=== PATIENT | male | born 1935 | race Caucasian/White ===

== ENCOUNTER 2017-08-09 20:04 | Observation (INO) ==
[2017-08-09] MEDS ORDERED: LABETALOL 20 MG/4 ML SYRINGE IV STA (23:50)
[2017-08-10] MEDS ORDERED: LABETALOL 100 MG/20 ML VIAL IV ONE (00:19)
[2017-08-10] MEDS ORDERED: MORPHINE 4 MG/1 ML VIAL IV PRN (00:32)
[2017-08-10] MEDS ORDERED: ONDANSETRON 4 MG/2 ML VIAL IV PRN (00:32)
[2017-08-10] MEDS ORDERED: LABETALOL 100 MG/20 ML VIAL IV PRN (00:38)
[2017-08-10] MEDS: NITROGLYCERIN 2% OINT 1 INCH/GM PACK TOP SCH ×4 (02:50→19:02)
[2017-08-10 07:30] LABS: Basophils # 0.1 10*3/uL (0.0-0.2); Basophils % 0.9 % (0.0-0.8); Eosinophils # 0.3 10*3/uL (0.0-0.87); Eosinophils % 3.8 % (0.00-10.9); Hematocrit 36.3 VOL% (42.0-52.0); Hemoglobin 13.1 GM/DL (14.0-18.0); Immature Granulocytes % 0.4 %; Immature Granulocytes Absolute 0.03 #; Lymphocytes # 1.2 10*3/uL (1.4-4.0); Lymphocytes % 16.4 % (21.2-54.2); Mean Corpuscular HGB Conc 36.1 GM/DL (32-36); Mean Corpuscular Hemoglobin 31 PG (27-34); Mean Corpuscular Volume 84.6 FL (87-102); Mean Platelet Volume 8.8 FL (9.6-12.0); Monocytes % 12.8 % (1.7-12.7); Neutrophils # 4.9 10*3/uL (1.4-7.4); Neutrophils % 65.7 % (38.7-73.9); Platelet Count 218 T/CUMM (130-400); Red Blood Count 4.29 MC/CUMM (3.8-5.5); Red Cell Distribution Width 13.3 % (9.3-17.3); White Blood Count 7.4 T/CUMM (4-12)
[2017-08-10 07:59] LABS: Albumin 3.3 G/DL (3.4-5.0); Bilirubin,Total 0.5 MG/DL (0.2-1.0); Calcium 8.7 MG/DL (8.5-10.1); Osmolality,Calculated 277.5 MOS/KG (273-304); Potassium 3.8 MMOL/L (3.5-5.1); Total Protein 6.9 G/DL (6.4-8.3)
[2017-08-10 08:14] LABS: Calcium 8.7 MG/DL (8.5-10.1); Osmolality,Calculated 277.5 MOS/KG (273-304); Potassium 3.8 MMOL/L (3.5-5.1)
[2017-08-10] MEDS ORDERED: amLODIPine 5 MG TABLET PO SCH (09:00)
[2017-08-10] MEDS ORDERED: REGADENOSON 0.4 MG/5 ML SYRINGE IV ONE (09:48)
[2017-08-10] MEDS ORDERED: amLODIPine 10 MG TABLET PO SCH (12:15)
[2017-08-10] MEDS: ASPIRIN EC 325 MG TABLET PO SCH (12:54)
[2017-08-10] MEDS: OXcarbazepine 300 MG TABLET PO SCH ×2 (12:54→21:25)
[2017-08-10] MEDS: GABAPENTIN 400 MG CAPSULE PO SCH ×2 (12:55→21:17)
[2017-08-10] MEDS: ENOXAPARIN 40 MG/0.4 ML SYRINGE SUBCUT SCH (12:55)
[2017-08-10] MEDS: PANTOPRAZOLE 40 MG TABLET PO SCH (12:55)
[2017-08-10] MEDS ORDERED: amLODIPine 5 MG TABLET PO ONE (14:40)
[2017-08-10] MEDS ORDERED: ACETAMINOPHEN 325 MG TABLET PO PRN (14:41)
[2017-08-11 05:08] LABS: Basophils # 0.1 10*3/uL (0.0-0.2); Basophils % 0.8 % (0.0-0.8); Eosinophils # 0.4 10*3/uL (0.0-0.87); Eosinophils % 5.9 % (0.00-10.9); Hematocrit 36.2 VOL% (42.0-52.0); Hemoglobin 12.9 GM/DL (14.0-18.0); Immature Granulocytes % 0.5 %; Immature Granulocytes Absolute 0.03 #; Lymphocytes # 1.4 10*3/uL (1.4-4.0); Lymphocytes % 22.8 % (21.2-54.2); Mean Corpuscular HGB Conc 35.6 GM/DL (32-36); Mean Corpuscular Hemoglobin 31 PG (27-34); Mean Corpuscular Volume 86.2 FL (87-102); Mean Platelet Volume 9.2 FL (9.6-12.0); Monocytes # 0.8 10*3/uL (0.11-0.8); Monocytes % 13.2 % (1.7-12.7); Neutrophils # 3.6 10*3/uL (1.4-7.4); Neutrophils % 56.8 % (38.7-73.9); Platelet Count 235 T/CUMM (130-400); Red Cell Distribution Width 13.2 % (9.3-17.3); White Blood Count 6.3 T/CUMM (4-12)
[2017-08-11 05:28] LABS: Calcium 8.3 MG/DL (8.5-10.1); Osmolality,Calculated 279.4 MOS/KG (273-304); Potassium 3.7 MMOL/L (3.5-5.1)
[2017-08-11 05:33] LABS: Risk Ratio 3.51; VLDL CHOLESTEROL 19.6 MG/DL
[2017-08-11] MEDS: NITROGLYCERIN 2% OINT 1 INCH/GM PACK TOP SCH ×2 (07:24→07:25)
[2017-08-11 07:50] VITALS: BP 157/77
[2017-08-11] MEDS: ASPIRIN EC 325 MG TABLET PO SCH (08:59)
[2017-08-11] MEDS: ENOXAPARIN 40 MG/0.4 ML SYRINGE SUBCUT SCH (08:59)
[2017-08-11] MEDS: PANTOPRAZOLE 40 MG TABLET PO SCH (08:59)
[2017-08-11] MEDS: GABAPENTIN 400 MG CAPSULE PO SCH (08:59)
[2017-08-11] MEDS: OXcarbazepine 300 MG TABLET PO SCH (08:59)
[2017-08-11] MEDS ORDERED: LOSARTAN 50 MG TABLET PO SCH (09:00)
[2017-08-11] MEDS ORDERED: ROSUVASTATIN 20 MG TABLET PO SCH (09:00)
== END 2017-08-11 10:20 | disposition home or self-care (01) ==
LOC: EDBD → EDUNIT# → N.EDINP 20:04 → N.ED 20:04 → N.TELES 08-10 01:06
PROVIDERS: ADMIT Internal Medicine; ATTEND Internal Medicine

== ENCOUNTER 2018-08-10 10:35 | Inpatient (IN) ==
[2018-08-10] MEDS ORDERED: ASPIRIN 325 MG TABLET PO STA ×2 (10:59→12:26)
[2018-08-10] MEDS ORDERED: ASPIRIN 325 MG TABLET ONE (10:59)
[2018-08-10] MEDS ORDERED: NITROGLYCERIN 2% OINT 1 INCH/GM PACK TOP STA (11:05)
[2018-08-10 11:12] LABS: Basophils # 0.1 10*3/uL (0.0-0.2); Basophils % 0.5 % (0.0-0.8); Eosinophils # 0.4 10*3/uL (0.0-0.87); Eosinophils % 3.5 % (0.00-10.9); Hematocrit 43.2 VOL% (42.0-52.0); Hemoglobin 13.9 GM/DL (14.0-18.0); Immature Granulocytes % 0.5 %; Immature Granulocytes Absolute 0.06 #; Lymphocytes # 2.3 10*3/uL (1.4-4.0); Lymphocytes % 18.4 % (21.2-54.2); Mean Corpuscular HGB Conc 32.2 GM/DL (32-36); Mean Corpuscular Volume 91.5 FL (87-102); Mean Platelet Volume 10.4 FL (9.6-12.0); Monocytes % 14.1 % (1.7-12.7); Platelet Count 240 T/CUMM (130-400); Red Blood Count 4.72 MC/CUMM (3.8-5.5); Red Cell Distribution Width 13.6 % (9.3-17.3); White Blood Count 12.7 T/CUMM (4-12)
[2018-08-10 11:30] LABS: Albumin 3.9 G/DL (3.4-5.0); Bilirubin,Total 0.7 MG/DL (0.2-1.0); Calcium 9.2 MG/DL (8.5-10.1); Osmolality,Calculated 285.3 MOS/KG (273-304); Total Protein 7.3 G/DL (6.4-8.3)
[2018-08-10] MEDS ORDERED: ENOXAPARIN 100 MG/ML SYRINGE SUBCUT STA (12:26)
[2018-08-10] MEDS ORDERED: MAGNESIUM SULF RIDER 4 GM in PREMIX 1 EACH IV PRN (12:29)
[2018-08-10] MEDS ORDERED: MORPHINE 4 MG/1 ML VIAL IV PRN (12:29)
[2018-08-10] MEDS ORDERED: PROMETHAZINE 25 MG TABLET PO PRN (12:29)
[2018-08-10] MEDS ORDERED: ONDANSETRON 4 MG/2 ML VIAL IV PRN (12:29)
[2018-08-10] MEDS ORDERED: MAGNESIUM SULF RIDER 2 GM in PREMIX 1 EACH IV PRN (12:29)
[2018-08-10] MEDS ORDERED: LACTULOSE 20 GM/30 ML UDCUP PO PRN (12:29)
[2018-08-10] MEDS ORDERED: ZALEPLON 5 MG CAPSULE PO PRN (12:29)
[2018-08-10] MEDS ORDERED: guaiFENesin/DM ER 600-30 MG TABLET PO PRN (12:29)
[2018-08-10] MEDS ORDERED: NICOTINE 21 MG/24 HR PATCH TRANSDERM PRN (12:29)
[2018-08-10] MEDS ORDERED: POTASSIUM CHLORIDE 20 MEQ TABLET PO PRN (12:29)
[2018-08-10] MEDS ORDERED: DOCUSATE SODIUM 100 MG CAPSULE PO PRN (12:29)
[2018-08-10] MEDS ORDERED: diphenhydrAMINE CAP 25 MG CAPSULE PO PRN (12:29)
[2018-08-10] MEDS ORDERED: SODIUM CHLORIDE 0.45% 1,000 ML IV SCH (12:30)
[2018-08-10] MEDS ORDERED: DIAZEPAM 5 MG TABLET PO ONE (12:32)
[2018-08-10] MEDS ORDERED: POTASSIUM CHLORIDE RIDER 10 MEQ in PREMIX 1 EACH IV PRN (12:32)
[2018-08-10] MEDS ORDERED: diphenhydrAMINE CAP 25 MG CAPSULE PO ONE (12:32)
[2018-08-10 13:03] LABS: Risk Ratio 3.59; VLDL CHOLESTEROL 28.8 MG/DL
[2018-08-10 13:30] LABS: Apearance,Urine CLEAR (Clear); Bilirubin,Urine Negative (Negative); Blood, Urine Negative (Negative); Glucose,Urine (UA) Negative (Negative); Hyaline Casts,Urine 1 /LPF (0-3); Ketones,Urine Negative (Negative); Mucus,Urine Occasional /LPF (Occasional); Nitrite,Urine Negative (Negative); Protein,Urine Negative; Squamous Epithelial Cell,Urine Occasional /HPF (0-10); Urine Color Yellow (Yellow); Urine Specific Gravity 1.011 (1.001-1.035); Urine Urobilinogen < 2.0 EU/DL (0.2-1.0)
[2018-08-10] MEDS ORDERED: LIDOCAINE 1% 20 ML VIAL ONE (14:16)
[2018-08-10] MEDS ORDERED: fentaNYL 100 MCG/2 ML VIAL ONE (14:17)
[2018-08-10] MEDS ORDERED: MIDAZOLAM 2 MG/2 ML VIAL ONE (14:17)
[2018-08-10] MEDS ORDERED: SODIUM CHLORIDE 0.9% 1,000 ML IV SCH (17:00)
[2018-08-10] MEDS: GABAPENTIN 400 MG CAPSULE PO SCH (20:55)
[2018-08-11 05:59] LABS: Basophils % 0.4 % (0.0-0.8); Eosinophils # 0.4 10*3/uL (0.0-0.87); Eosinophils % 3.6 % (0.00-10.9); Hematocrit 37.3 VOL% (42.0-52.0); Hemoglobin 12.3 GM/DL (14.0-18.0); Immature Granulocytes Absolute 0.11 #; Lymphocytes # 1.6 10*3/uL (1.4-4.0); Lymphocytes % 14.6 % (21.2-54.2); Mean Corpuscular Volume 90.5 FL (87-102); Mean Platelet Volume 11.6 FL (9.6-12.0); Monocytes % 14.9 % (1.7-12.7); Neutrophils % 65.5 % (38.7-73.9); Platelet Count 185 T/CUMM (130-400); Red Blood Count 4.12 MC/CUMM (3.8-5.5); Red Cell Distribution Width 13.4 % (9.3-17.3); White Blood Count 11.1 T/CUMM (4-12)
[2018-08-11 06:28] LABS: CKMB % 9.9 %; Calcium 8.6 MG/DL (8.5-10.1); Osmolality,Calculated 288.1 MOS/KG (273-304)
[2018-08-11 06:30] LABS: Troponin I 15.4 NG/ML (0.00-0.045)
[2018-08-11] MEDS ORDERED: amLODIPine 10 MG TABLET PO SCH (09:00)
[2018-08-11] MEDS: ENOXAPARIN 30 MG/0.3 ML SYRINGE SUBCUT SCH (09:21)
[2018-08-11] MEDS: GABAPENTIN 400 MG CAPSULE PO SCH ×3 (09:21→21:28)
[2018-08-11] MEDS: FAMOTIDINE 20 MG TABLET PO SCH (09:21)
[2018-08-11] MEDS: ASPIRIN EC 81 MG TABLET PO SCH (09:21)
[2018-08-11] MEDS: PANTOPRAZOLE 40 MG TABLET PO SCH (09:21)
[2018-08-11] MEDS: ROSUVASTATIN 20 MG TABLET PO SCH (09:21)
[2018-08-12 05:23] LABS: Basophils # 0.1 10*3/uL (0.0-0.2); Basophils % 0.6 % (0.0-0.8); Eosinophils # 0.4 10*3/uL (0.0-0.87); Eosinophils % 3.7 % (0.00-10.9); Hematocrit 38.3 VOL% (42.0-52.0); Hemoglobin 12.3 GM/DL (14.0-18.0); Immature Granulocytes % 0.4 %; Immature Granulocytes Absolute 0.05 #; Lymphocytes # 1.7 10*3/uL (1.4-4.0); Lymphocytes % 15.3 % (21.2-54.2); Mean Corpuscular HGB Conc 32.1 GM/DL (32-36); Mean Corpuscular Volume 92.1 FL (87-102); Mean Platelet Volume 10.5 FL (9.6-12.0); Monocytes % 16.4 % (1.7-12.7); Neutrophils % 63.6 % (38.7-73.9); Platelet Count 189 T/CUMM (130-400); Red Blood Count 4.16 MC/CUMM (3.8-5.5); Red Cell Distribution Width 13.4 % (9.3-17.3); White Blood Count 11.2 T/CUMM (4-12)
[2018-08-12 05:44] LABS: Calcium 8.6 MG/DL (8.5-10.1); Osmolality,Calculated 284.4 MOS/KG (273-304)
[2018-08-12 05:55] LABS: Band Neutrophils 2 % (0-10); Eosinophils 3 % (0-10); Lymphocytes 20 % (20-55); Segmented Neutrophils 63 % (50-85)
[2018-08-12 05:56] LABS: Platelet Estimate Adequate; Total Cells Counted 100
[2018-08-12] MEDS: GABAPENTIN 400 MG CAPSULE PO SCH ×3 (09:22→21:38)
[2018-08-12] MEDS: ROSUVASTATIN 20 MG TABLET PO SCH (09:22)
[2018-08-12] MEDS: PANTOPRAZOLE 40 MG TABLET PO SCH (09:23)
[2018-08-12] MEDS: CHLORHEXIDINE 0.12% ORAL RINSE 60 ML BOTTLE SWISH/SPIT SCH ×2 (09:23→21:39)
[2018-08-12] MEDS: FAMOTIDINE 20 MG TABLET PO SCH (09:23)
[2018-08-12] MEDS: CHLORHEXIDINE 4% SOLN 118 ML BOTTLE TOP SCH ×2 (09:24→16:11)
[2018-08-12] MEDS: ASPIRIN EC 81 MG TABLET PO SCH (09:24)
[2018-08-12] MEDS: SODIUM CHLORIDE 0.9% 1,000 ML IV SCH (09:40)
[2018-08-12] MEDS: ENOXAPARIN 30 MG/0.3 ML SYRINGE SUBCUT SCH ×2 (09:41→13:54)
[2018-08-13] MEDS ORDERED: TISSUE ADHESIVE 1 EACH APPLICATOR TOP ONE (04:41)
[2018-08-13] MEDS ORDERED: PAPAVERINE 60 MG/2 ML VIAL ONE (04:41)
[2018-08-13] MEDS ORDERED: VANCOMYCIN 1,000 MG VIAL ONE (04:42)
[2018-08-13 05:32] LABS: Basophils # 0.1 10*3/uL (0.0-0.2); Basophils % 0.7 % (0.0-0.8); Eosinophils # 0.6 10*3/uL (0.0-0.87); Eosinophils % 5.4 % (0.00-10.9); Hematocrit 38.5 VOL% (42.0-52.0); Hemoglobin 12.7 GM/DL (14.0-18.0); Immature Granulocytes % 0.4 %; Immature Granulocytes Absolute 0.04 #; Lymphocytes # 1.7 10*3/uL (1.4-4.0); Mean Corpuscular Volume 91.4 FL (87-102); Mean Platelet Volume 12.1 FL (9.6-12.0); Monocytes % 18.4 % (1.7-12.7); Neutrophils % 59.1 % (38.7-73.9); Platelet Count 166 T/CUMM (130-400); Red Blood Count 4.21 MC/CUMM (3.8-5.5); Red Cell Distribution Width 13.2 % (9.3-17.3); White Blood Count 10.5 T/CUMM (4-12)
[2018-08-13 05:51] LABS: Calcium 9.1 MG/DL (8.5-10.1); Osmolality,Calculated 281.5 MOS/KG (273-304)
[2018-08-13 05:58] LABS: Band Neutrophils 2 % (0-10); Eosinophils 8 % (0-10); Hypochromasia Slight; Lymphocytes 11 % (20-55); Platelet Estimate Adequate; Segmented Neutrophils 63 % (50-85); Total Cells Counted 100
[2018-08-13] MEDS: CHLORHEXIDINE 4% SOLN 118 ML BOTTLE TOP SCH (06:00)
[2018-08-13] MEDS ORDERED: CEFUROXIME INJ 1,500 MG in SYRINGE 1 EACH IV ONE (06:51)
[2018-08-13] MEDS ORDERED: DIAZEPAM 5 MG TABLET PO ONE (08:00)
[2018-08-13] MEDS ORDERED: MIDAZOLAM 10 MG/2 ML VIAL ONE (08:11)
[2018-08-13] MEDS ORDERED: VECURONIUM 10 MG VIAL IV ONE (08:14)
[2018-08-13] MEDS ORDERED: ETOMIDATE 40 MG/20 ML VIAL IV ONE (08:14)
[2018-08-13] MEDS ORDERED: HEPARIN/NACL 0.9% 2 UNITS/ML 500 ML IV ONE (08:18)
[2018-08-13] MEDS ORDERED: NITROGLYCERIN DRIP 50 MG/250 ML BOTTLE IV ONE (08:18)
[2018-08-13] MEDS ORDERED: SODIUM CHLORIDE 0.9% 1,000 ML IV ONE ×2 (08:18→17:40)
[2018-08-13] MEDS ORDERED: PHENYLEPHRINE DRIP 20 MG/250 ML PREMIX IV ONE (08:18)
[2018-08-13] MEDS ORDERED: LACTATED RINGERS 1,000 ML IV ONE ×2 (08:18→17:40)
[2018-08-13] MEDS ORDERED: CALCIUM CHLORIDE 1,000 MG/10 ML VIAL IV ONE (08:18)
[2018-08-13] MEDS ORDERED: NITROPRUSSIDE 50 MG/2 ML VIAL ONE (09:14)
[2018-08-13] MEDS ORDERED: ALBUMIN 5% 12.5 GM/250 ML VIAL IV ONE (09:15)
[2018-08-13] MEDS ORDERED: PHENYLEPHRINE DRIP 40 MG/250 ML PREMIX IV ONE (09:15)
[2018-08-13] MEDS ORDERED: SODIUM BICARBONATE 50 MEQ/50 ML VIAL IV ONE ×2 (09:15→16:32)
[2018-08-13] MEDS ORDERED: POTASSIUM CHLORIDE RIDER 100 ML IV ONE ×2 (09:15→18:38)
[2018-08-13] MEDS ORDERED: CALCIUM CHLORIDE 1,000 MG/10 ML SYRINGE IV ONE (09:15)
[2018-08-13] MEDS: PANTOPRAZOLE 40 MG TABLET PO SCH (10:33)
[2018-08-13] MEDS ORDERED: EPINEPHrine 1 MG/ML VIAL ONE (11:40)
[2018-08-13] MEDS ORDERED: VANCOMYCIN 500 MG VIAL ONE (12:45)
[2018-08-13 13:18] LABS: ABG Base Excess -1.4 MMOL/L (-2.5-2.5); ABG HCO3 23.2 MMOL/L (20-26); ABG Oxygen Saturation 99.8 % (95-100); ABG PCO2 38.3 MM HG (35-48); ABG TCO2 20.5 MMOL/L (23-27); Glucose Heart Surgery 116 MG/DL (74-106); Hematocrit Heart Surgery 37.7 PERCENT (42-52); Hemoglobin Heart Surgery 12.3 G/DL (14.0-18.0); PCO2 Patient Temp Arterial 38.3 MMHG; Patient Temperature 37 CELCIUS; Sodium Heart/CVR 138 MMOL/L (135-145)
[2018-08-13] MEDS: GABAPENTIN 400 MG CAPSULE PO SCH (14:25)
[2018-08-13] MEDS: ROSUVASTATIN 20 MG TABLET PO SCH (14:25)
[2018-08-13] MEDS: CHLORHEXIDINE 0.12% ORAL RINSE 60 ML BOTTLE SWISH/SPIT SCH ×2 (14:25→21:49)
[2018-08-13] MEDS: SODIUM CHLORIDE 0.9% 1,000 ML IV SCH (14:25)
[2018-08-13] MEDS: FAMOTIDINE 20 MG TABLET PO SCH (14:25)
[2018-08-13] MEDS: ENOXAPARIN 30 MG/0.3 ML SYRINGE SUBCUT SCH (14:25)
[2018-08-13] MEDS: ASPIRIN EC 81 MG TABLET PO SCH (14:25)
[2018-08-13 15:01] LABS: Hematocrit Heart Surgery 24.6 PERCENT (42-52); Hemoglobin Heart Surgery 7.9 G/DL (14.0-18.0); PCO2 Patient Temp Venous 33.5 MM HG; PH Patient Temp Venous 7.442; PO2 Patient Temp Venous 35.9 MM HG; VBG Base Excess -0.9 MEQ/L (0-4); VBG HCO3 23.3 MEQ/L (24-28); VBG Oxygen Saturation 72.3 %; VBG PCO2 33.5 MMHG (41-51); VBG PH 7.442; VBG PO2 35.9 MMHG (17-40)
[2018-08-13 15:32] LABS: Hematocrit Heart Surgery 25.5 PERCENT (42-52); Hemoglobin Heart Surgery 8.2 G/DL (14.0-18.0); PCO2 Patient Temp Venous 31.2 MM HG; PH Patient Temp Venous 7.435; PO2 Patient Temp Venous 49.2 MM HG; Potassium Heart/CVR 4.3 MMOL/L (3.5-5.1); VBG Base Excess -2.7 MEQ/L (0-4); VBG HCO3 22.1 MEQ/L (24-28); VBG PCO2 34.3 MMHG (41-51); VBG PH 7.405; VBG PO2 56.3 MMHG (17-40)
[2018-08-13 15:41] LABS: Apearance,Urine CLEAR (Clear); Bacteria,Urine Occasional /HPF (Few); Bilirubin,Urine Negative (Negative); Blood, Urine Negative (Negative); Glucose,Urine (UA) Negative (Negative); Ketones,Urine Negative (Negative); Mucus,Urine Occasional /LPF (Occasional); Nitrite,Urine Negative (Negative); Protein,Urine Negative; RBC,Urine 3 /HPF (0-4); Urine Color Yellow (Yellow); Urine Urobilinogen < 2.0 EU/DL (0.2-1.0); WBC,Urine <1 /HPF (0-6)
[2018-08-13 15:58] LABS: Hematocrit Heart Surgery 25.8 PERCENT (42-52); Hemoglobin Heart Surgery 8.3 G/DL (14.0-18.0); PCO2 Patient Temp Venous 33.1 MM HG; PH Patient Temp Venous 7.427; PO2 Patient Temp Venous 46.2 MM HG; Potassium Heart/CVR 4.6 MMOL/L (3.5-5.1); VBG HCO3 22.5 MEQ/L (24-28); VBG Oxygen Saturation 83.8 %; VBG PCO2 33.1 MMHG (41-51); VBG PH 7.427; VBG PO2 46.2 MMHG (17-40)
[2018-08-13 16:21] LABS: HIV Antigen/Antibody Result Nonreactive (Nonreactive); Hepatitis B Surface Ag Quant 0.61 Index; Hepatitis B Surface Ag Result Negative (Negative); Hepatitis C Virus Ab Quant 0.08 Index; Hepatitis C Virus Ab Result Negative (Negative)
[2018-08-13 16:30] LABS: ABG Base Excess -1.2 MMOL/L (-2.5-2.5); ABG HCO3 23.5 MMOL/L (20-26); ABG PCO2 36.8 MM HG (35-48); ABG PH 7.408 (7.35-7.45); ABG TCO2 21.6 MMOL/L (23-27); Glucose Heart Surgery 244 MG/DL (74-106); Ionized Calcium Arterial 1.17 MMOL/L (1.21-1.46); PCO2 Patient Temp Arterial 36.8 MMHG; PH Patient Temp Arterial 7.408; Patient Temperature 37 CELCIUS; Potassium Heart/CVR 4.1 MMOL/L (3.5-5.1); Sodium Heart/CVR 135 MMOL/L (135-145)
[2018-08-13] MEDS ORDERED: MANNITOL 100 GM/500 ML BAG IV ONE (16:32)
[2018-08-13] MEDS ORDERED: DEXTROSE 5% KCL 20 MEQ 20 MEQ/1,000 ML BAG IV ONE (16:32)
[2018-08-13] MEDS ORDERED: PROTAMINE SULFATE 250 MG/25 ML VIAL IV ONE (16:33)
[2018-08-13] MEDS ORDERED: MAGNESIUM SULFATE 5 GM/10 ML VIAL IV ONE (16:33)
[2018-08-13] MEDS ORDERED: ALBUMIN 25% 25 GM/100 ML VIAL IV ONE (16:33)
[2018-08-13] MEDS ORDERED: PROTAMINE SULFATE 50 MG/5 ML VIAL IV ONE (16:33)
[2018-08-13] MEDS ORDERED: FUROSEMIDE 20 MG/2 ML VIAL ONE (16:33)
[2018-08-13] MEDS ORDERED: methylPREDNISolone SOD SUC 1,000 MG/8 ML VIAL ONE (16:33)
[2018-08-13] MEDS ORDERED: HEPARIN 10,000 UNIT/10 ML VIAL ONE ×2 (16:33→17:45)
[2018-08-13] MEDS ORDERED: THROMBIN TOPICAL (RECOMBINANT) 5,000 UNIT VIAL TOP ONE (17:36)
[2018-08-13] MEDS ORDERED: SEVOFLURANE 1 UNIT/15 MINUTE INH ONE (17:39)
[2018-08-13] MEDS ORDERED: AMINOCAPROIC ACID 5,000 MG/20 ML VIAL ONE (17:39)
[2018-08-13] MEDS ORDERED: PROPOFOL 200 MG/20 ML VIAL IV ONE (17:40)
[2018-08-13] MEDS ORDERED: ALBUMIN 5% 12.5 GM in PREMIX 1 EACH IV PRN (17:51)
[2018-08-13] MEDS ORDERED: CALCIUM CHLORIDE 1,000 MG/10 ML SYRINGE IV PRN (17:51)
[2018-08-13] MEDS ORDERED: CHLORHEXIDINE 4% SOLN 118 ML BOTTLE TOP PRN (17:51)
[2018-08-13] MEDS ORDERED: ONDANSETRON 4 MG/2 ML VIAL IV PRN (17:51)
[2018-08-13] MEDS ORDERED: DEXTROSE 50% 25 GM/50 ML VIAL IV PRN ×2 (17:51)
[2018-08-13] MEDS ORDERED: MAGNESIUM SULF RIDER 2 GM in PREMIX 1 EACH IV PRN (17:51)
[2018-08-13] MEDS ORDERED: ACETAMINOPHEN 650 MG SUPP RECTAL PRN (17:51)
[2018-08-13] MEDS ORDERED: MIDAZOLAM 2 MG/2 ML VIAL IV PRN (17:51)
[2018-08-13] MEDS ORDERED: MAGNESIUM SULF RIDER 4 GM in PREMIX 1 EACH IV PRN (17:51)
[2018-08-13] MEDS ORDERED: SODIUM CHLORIDE 0.9% 250 ML IV PRN (17:51)
[2018-08-13] MEDS ORDERED: INSULIN REGULAR DRIP 100 ML IV SCH (18:00)
[2018-08-13] MEDS: POTASSIUM CHLORIDE RIDER 20 MEQ in PREMIX 1 EACH IV PRN (18:00)
[2018-08-13] MEDS ORDERED: SODIUM CHLORIDE 0.45% 1,000 ML IV SCH (18:00)
[2018-08-13 18:03] LABS: ABG Base Excess -2.5 MMOL/L (-2.5-2.5); ABG HCO3 22.3 MMOL/L (20-26); ABG Oxygen Saturation 99.1 % (95-100); ABG PCO2 42.9 MM HG (35-48); ABG TCO2 21.6 MMOL/L (23-27); Glucose Heart Surgery 217 MG/DL (74-106); Hematocrit Heart Surgery 26.4 PERCENT (42-52); Hemoglobin Heart Surgery 8.5 G/DL (14.0-18.0); Potassium Heart/CVR 3.7 MMOL/L (3.5-5.1)
[2018-08-13 18:05] LABS: Basophils % 0.2 % (0.0-0.8); Eosinophils % 0.2 % (0.00-10.9); Hematocrit 25.6 VOL% (42.0-52.0); Hemoglobin 8.1 GM/DL (14.0-18.0); Immature Granulocytes % 0.8 %; Immature Granulocytes Absolute 0.11 #; Lymphocytes # 0.9 10*3/uL (1.4-4.0); Lymphocytes % 6.1 % (21.2-54.2); Mean Corpuscular HGB Conc 31.6 GM/DL (32-36); Mean Corpuscular Volume 94.1 FL (87-102); Mean Platelet Volume 9.9 FL (9.6-12.0); Monocytes % 6.8 % (1.7-12.7); Neutrophils % 85.9 % (38.7-73.9); Platelet Count 174 T/CUMM (130-400); Red Blood Count 2.72 MC/CUMM (3.8-5.5); Red Cell Distribution Width 13.2 % (9.3-17.3); White Blood Count 13.9 T/CUMM (4-12)
[2018-08-13] MEDS ORDERED: ePHEDrine 50 MG/ML AMP ONE (18:06)
[2018-08-13 18:16] LABS: INR 1.1; PT Patient Result 11.8 SECS; Partial Thromboplastin Time 28.4 SECS (0-40)
[2018-08-13 18:23] LABS: Blood Urea Nitrogen 23 MG/DL (7-18); Calcium 7.5 MG/DL (8.5-10.1); Glucose 196 MG/DL (74-106); Osmolality,Calculated 285.5 MOS/KG (273-304)
[2018-08-13] MEDS: SODIUM CHLORIDE 0.45% 1,000 ML IV SCH (18:29)
[2018-08-13] MEDS: POTASSIUM CHLORIDE RIDER 10 MEQ in PREMIX 1 EACH IV PRN (18:43)
[2018-08-13] MEDS: methylPREDNISolone SOD SUC 40 MG/1 ML VIAL IV SCH (18:48)
[2018-08-13] MEDS ORDERED: CALCIUM GLUCONATE 1,000 MG in SODIUM CHLORIDE 0.9% 100 ML IV ONE ×2 (19:00→19:30)
[2018-08-13] MEDS ORDERED: NITROGLYCERIN DRIP 50 MG/250 ML BOTTLE IV PRN (19:34)
[2018-08-13] MEDS: INSULIN REGULAR 100 UNIT/ML IV PRN ×2 (20:12→22:08)
[2018-08-13] MEDS ORDERED: METOPROLOL TARTRATE 5 MG/5 ML VIAL IV ONE ×2 (20:49→20:52)
[2018-08-13] MEDS ORDERED: LACTATED RINGERS 500 ML IV ONE (20:52)
[2018-08-13] MEDS ORDERED: ASPIRIN 325 MG TABLET PER TUBE ONE (20:58)
[2018-08-13] MEDS: MORPHINE 4 MG/1 ML VIAL IV PRN (22:04)
[2018-08-14] MEDS: MORPHINE 10 MG/1 ML VIAL IV PRN ×2 (02:03→21:28)
[2018-08-14] MEDS ORDERED: DEXMEDETOMIDINE 400 MCG in SODIUM CHLORIDE 0.9% 96 ML IV PRN (02:48)
[2018-08-14] MEDS: methylPREDNISolone SOD SUC 40 MG/1 ML VIAL IV SCH ×3 (03:15→17:25)
[2018-08-14 04:56] LABS: Basophils % 0.1 % (0.0-0.8); Hematocrit 31.7 VOL% (42.0-52.0); Hemoglobin 10.4 GM/DL (14.0-18.0); Immature Granulocytes % 0.4 %; Immature Granulocytes Absolute 0.06 #; Lymphocytes # 0.4 10*3/uL (1.4-4.0); Lymphocytes % 2.4 % (21.2-54.2); Mean Corpuscular HGB Conc 32.8 GM/DL (32-36); Mean Corpuscular Volume 91.9 FL (87-102); Mean Platelet Volume 10.4 FL (9.6-12.0); Monocytes % 5.1 % (1.7-12.7); Platelet Count 176 T/CUMM (130-400); Red Blood Count 3.45 MC/CUMM (3.8-5.5); Red Cell Distribution Width 14.2 % (9.3-17.3); White Blood Count 14.5 T/CUMM (4-12)
[2018-08-14 04:59] LABS: ABG Base Excess -1.1 MMOL/L (-2.5-2.5); ABG HCO3 23.5 MMOL/L (20-26); ABG Oxygen Saturation 97.7 % (95-100); ABG PCO2 38.9 MM HG (35-48); ABG PH 7.399 (7.35-7.45); ABG PO2 105.9 MM HG (80-95); ABG TCO2 24.7 MMOL/L (23-27); Glucose Heart Surgery 118 MG/DL (74-106); Hemoglobin Heart Surgery 11.2 G/DL (14.0-18.0); Potassium Heart/CVR 4.3 MMOL/L (3.5-5.1)
[2018-08-14 05:04] LABS: Calcium 8.3 MG/DL (8.5-10.1); Osmolality,Calculated 283.4 MOS/KG (273-304)
[2018-08-14 05:32] LABS: Anisocytosis 1+; Band Neutrophils 5 % (0-10); Lymphocytes 2 % (20-55); Platelet Estimate Adequate; Segmented Neutrophils 92 % (50-85); Total Cells Counted 100
[2018-08-14] MEDS: SODIUM CHLORIDE 0.45% 1,000 ML IV SCH ×2 (06:15→10:20)
[2018-08-14] MEDS: MORPHINE 4 MG/1 ML VIAL IV PRN ×3 (06:41→17:27)
[2018-08-14] MEDS: INSULIN REGULAR 100 UNIT/ML SUBCUT SCH ×4 (08:30→21:36)
[2018-08-14] MEDS: FAMOTIDINE 20 MG/2 ML VIAL IV SCH ×2 (09:00→21:31)
[2018-08-14] MEDS: CARVEDILOL 3.125 MG TABLET PO SCH ×2 (09:03→21:36)
[2018-08-14] MEDS: CHLORHEXIDINE 0.12% ORAL RINSE 60 ML BOTTLE SWISH/SPIT SCH ×2 (09:04→21:37)
[2018-08-14] MEDS ORDERED: FUROSEMIDE 40 MG/4 ML VIAL IV ONE (10:07)
[2018-08-14] MEDS ORDERED: KETOROLAC 15 MG/1 ML VIAL IV ONE (10:07)
[2018-08-14] MEDS ORDERED: METOPROLOL TARTRATE 25 MG TABLET PO SCH (10:30)
[2018-08-14] MEDS: ASPIRIN EC 325 MG TABLET PO SCH (17:28)
[2018-08-14] MEDS: FUROSEMIDE 40 MG TABLET PO SCH (17:28)
[2018-08-14] MEDS: ATORVASTATIN 40 MG TABLET PO SCH (17:31)
[2018-08-14] MEDS: CEFUROXIME INJ 1,500 MG in SODIUM CHLORIDE 0.9% 100 ML IV SCH (21:43)
[2018-08-15] MEDS: INSULIN REGULAR 100 UNIT/ML SUBCUT SCH ×7 (00:53→20:52)
[2018-08-15] MEDS: methylPREDNISolone SOD SUC 40 MG/1 ML VIAL IV SCH ×3 (01:36→18:33)
[2018-08-15 04:48] LABS: Basophils % 0.2 % (0.0-0.8); Hematocrit 32.5 VOL% (42.0-52.0); Hemoglobin 10.4 GM/DL (14.0-18.0); Immature Granulocytes % 0.8 %; Immature Granulocytes Absolute 0.16 #; Lymphocytes # 0.6 10*3/uL (1.4-4.0); Lymphocytes % 2.9 % (21.2-54.2); Mean Corpuscular Volume 93.1 FL (87-102); Mean Platelet Volume 10.3 FL (9.6-12.0); Monocytes % 8.7 % (1.7-12.7); Neutrophils % 87.4 % (38.7-73.9); Platelet Count 194 T/CUMM (130-400); Red Blood Count 3.49 MC/CUMM (3.8-5.5); Red Cell Distribution Width 14.5 % (9.3-17.3); White Blood Count 19.1 T/CUMM (4-12)
[2018-08-15 05:17] LABS: Calcium 8.8 MG/DL (8.5-10.1); Osmolality,Calculated 286.5 MOS/KG (273-304)
[2018-08-15] MEDS: MORPHINE 4 MG/1 ML VIAL IV PRN ×4 (05:22→14:45)
[2018-08-15 05:28] LABS: Anisocytosis 1+; Band Neutrophils 4 % (0-10); Lymphocytes 4 % (20-55); Platelet Estimate Adequate; Segmented Neutrophils 90 % (50-85); Total Cells Counted 100
[2018-08-15] MEDS: POTASSIUM CHLORIDE RIDER 20 MEQ in PREMIX 1 EACH IV PRN (06:42)
[2018-08-15] MEDS ORDERED: HALOPERIDOL 5 MG/ML AMP IV ONE (07:25)
[2018-08-15] MEDS ORDERED: KETOROLAC 15 MG/1 ML VIAL IV ONE (07:25)
[2018-08-15] MEDS ORDERED: HALOPERIDOL 5 MG/ML AMP ONE (07:25)
[2018-08-15] MEDS ORDERED: KETOROLAC 15 MG/1 ML VIAL ONE (07:27)
[2018-08-15] MEDS: FAMOTIDINE 20 MG/2 ML VIAL IV SCH ×2 (09:31→21:00)
[2018-08-15] MEDS: CHLORHEXIDINE 0.12% ORAL RINSE 60 ML BOTTLE SWISH/SPIT SCH ×2 (09:31→21:00)
[2018-08-15] MEDS: ASPIRIN EC 325 MG TABLET PO SCH (09:32)
[2018-08-15] MEDS: ASCORBIC ACID 500 MG TABLET PO SCH ×2 (09:32→21:00)
[2018-08-15] MEDS: FUROSEMIDE 40 MG TABLET PO SCH (09:32)
[2018-08-15] MEDS: CEFUROXIME INJ 1,500 MG in SODIUM CHLORIDE 0.9% 100 ML IV SCH ×2 (09:33→22:10)
[2018-08-15] MEDS: POTASSIUM CHLORIDE RIDER 10 MEQ in PREMIX 1 EACH IV PRN (09:36)
[2018-08-15] MEDS: CARVEDILOL 6.25 MG TABLET PO SCH ×2 (09:40→21:00)
[2018-08-15] MEDS: CARVEDILOL 3.125 MG TABLET PO SCH (09:48)
[2018-08-15] MEDS: MORPHINE 10 MG/1 ML VIAL IV PRN ×2 (20:30→22:16)
[2018-08-15] MEDS: ATORVASTATIN 40 MG TABLET PO SCH (21:00)
[2018-08-15] MEDS ORDERED: HALOPERIDOL 5 MG/ML AMP IV PRN (22:25)
[2018-08-16] MEDS: INSULIN REGULAR 100 UNIT/ML SUBCUT SCH ×6 (00:10→20:19)
[2018-08-16] MEDS: MORPHINE 10 MG/1 ML VIAL IV PRN ×4 (00:24→08:53)
[2018-08-16] MEDS: hydrALAZINE 20 MG/1 ML VIAL IV PRN ×2 (01:12→06:02)
[2018-08-16] MEDS: methylPREDNISolone SOD SUC 40 MG/1 ML VIAL IV SCH ×3 (02:04→17:36)
[2018-08-16 04:14] LABS: Basophils % 0.2 % (0.0-0.8); Hematocrit 33.8 VOL% (42.0-52.0); Immature Granulocytes % 1.7 %; Immature Granulocytes Absolute 0.33 #; Lymphocytes # 0.6 10*3/uL (1.4-4.0); Lymphocytes % 3.1 % (21.2-54.2); Mean Corpuscular HGB Conc 32.5 GM/DL (32-36); Mean Corpuscular Volume 91.4 FL (87-102); Mean Platelet Volume 10.5 FL (9.6-12.0); Platelet Count 220 T/CUMM (130-400); Red Cell Distribution Width 14.2 % (9.3-17.3); White Blood Count 19.1 T/CUMM (4-12)
[2018-08-16 04:32] LABS: Osmolality,Calculated 296.4 MOS/KG (273-304)
[2018-08-16 04:54] LABS: Band Neutrophils 1 % (0-10); Lymphocytes 5 % (20-55); Segmented Neutrophils 92 % (50-85); Total Cells Counted 100
[2018-08-16 04:55] LABS: Anisocytosis Slight; Microcytosis Slight
[2018-08-16 04:56] LABS: Platelet Estimate Normal
[2018-08-16] MEDS ORDERED: DILTIAZEM 50 MG/10 ML VIAL IV ONE (07:19)
[2018-08-16] MEDS: dilTIAZem Drip 125 MG/125 ML PREMIX IV SCH ×2 (08:15→17:15)
[2018-08-16] MEDS: FAMOTIDINE 20 MG/2 ML VIAL IV SCH ×2 (09:22→22:43)
[2018-08-16] MEDS: CARVEDILOL 12.5 MG TABLET PO SCH ×2 (09:23→20:46)
[2018-08-16] MEDS: POTASSIUM CHLORIDE 20 MEQ TABLET PO PRN (09:23)
[2018-08-16] MEDS: FUROSEMIDE 40 MG TABLET PO SCH (09:23)
[2018-08-16] MEDS: ASPIRIN EC 325 MG TABLET PO SCH (09:23)
[2018-08-16] MEDS: ASCORBIC ACID 500 MG TABLET PO SCH ×2 (09:23→20:47)
[2018-08-16] MEDS: CHLORHEXIDINE 0.12% ORAL RINSE 60 ML BOTTLE SWISH/SPIT SCH ×2 (09:27→20:47)
[2018-08-16] MEDS: ATORVASTATIN 40 MG TABLET PO SCH (20:46)
[2018-08-17] MEDS: INSULIN REGULAR 100 UNIT/ML SUBCUT SCH ×6 (00:50→22:00)
[2018-08-17] MEDS: hydrALAZINE 20 MG/1 ML VIAL IV PRN ×3 (01:23→22:10)
[2018-08-17] MEDS: methylPREDNISolone SOD SUC 40 MG/1 ML VIAL IV SCH ×3 (01:29→18:40)
[2018-08-17 04:39] LABS: Basophils % 0.1 % (0.0-0.8); Hematocrit 32.5 VOL% (42.0-52.0); Hemoglobin 10.6 GM/DL (14.0-18.0); Immature Granulocytes % 1.4 %; Immature Granulocytes Absolute 0.23 #; Lymphocytes # 0.6 10*3/uL (1.4-4.0); Lymphocytes % 3.7 % (21.2-54.2); Mean Corpuscular HGB Conc 32.6 GM/DL (32-36); Mean Corpuscular Volume 90.8 FL (87-102); Mean Platelet Volume 10.3 FL (9.6-12.0); Monocytes % 8.5 % (1.7-12.7); Neutrophils % 86.3 % (38.7-73.9); Platelet Count 236 T/CUMM (130-400); Red Blood Count 3.58 MC/CUMM (3.8-5.5); Red Cell Distribution Width 14.3 % (9.3-17.3); White Blood Count 16.3 T/CUMM (4-12)
[2018-08-17 05:31] LABS: Lymphocytes 2 % (20-55); Myelocytes 1 %; Segmented Neutrophils 95 % (50-85); Total Cells Counted 100
[2018-08-17 05:32] LABS: Platelet Estimate Adequate; Polychromasia Few
[2018-08-17] MEDS ORDERED: SODIUM CHLORIDE 0.9% 1,000 ML IV SCH (08:00)
[2018-08-17] MEDS: FAMOTIDINE 20 MG/2 ML VIAL IV SCH ×2 (09:12→22:00)
[2018-08-17] MEDS: CHLORHEXIDINE 0.12% ORAL RINSE 60 ML BOTTLE SWISH/SPIT SCH ×2 (11:36→23:09)
[2018-08-17] MEDS: ASCORBIC ACID 500 MG TABLET PO SCH ×2 (11:36→22:00)
[2018-08-17] MEDS: FUROSEMIDE 40 MG TABLET PO SCH (11:36)
[2018-08-17] MEDS: ASPIRIN EC 325 MG TABLET PO SCH (11:36)
[2018-08-17] MEDS: CARVEDILOL 25 MG TABLET PO SCH ×2 (11:36→22:00)
[2018-08-17] MEDS: POTASSIUM CHLORIDE 20 MEQ TABLET PO PRN ×2 (19:24→22:05)
[2018-08-17] MEDS ORDERED: HYDROcod/ACETAMIN 7.5-325 MG/15 ML UDCUP PO PRN (19:25)
[2018-08-17] MEDS: ATORVASTATIN 40 MG TABLET PO SCH (22:00)
[2018-08-18] MEDS: INSULIN REGULAR 100 UNIT/ML SUBCUT SCH ×6 (01:15→21:35)
[2018-08-18] MEDS: methylPREDNISolone SOD SUC 40 MG/1 ML VIAL IV SCH ×3 (04:00→18:35)
[2018-08-18 05:28] LABS: Basophils % 0.2 % (0.0-0.8); Hematocrit 30.8 VOL% (42.0-52.0); Hemoglobin 10.1 GM/DL (14.0-18.0); Immature Granulocytes % 1.1 %; Lymphocytes # 0.7 10*3/uL (1.4-4.0); Lymphocytes % 4.2 % (21.2-54.2); Mean Corpuscular HGB Conc 32.8 GM/DL (32-36); Mean Corpuscular Volume 91.9 FL (87-102); Mean Platelet Volume 10.3 FL (9.6-12.0); Monocytes % 13.6 % (1.7-12.7); Neutrophils % 80.9 % (38.7-73.9); Platelet Count 221 T/CUMM (130-400); Red Blood Count 3.35 MC/CUMM (3.8-5.5); Red Cell Distribution Width 14.6 % (9.3-17.3); White Blood Count 17.6 T/CUMM (4-12)
[2018-08-18 05:49] LABS: Hypochromasia Slight; Lymphocytes 2 % (20-55); Osmolality,Calculated 312.3 MOS/KG (273-304); Platelet Estimate Adequate; Polychromasia Few; Segmented Neutrophils 92 % (50-85); Total Cells Counted 100
[2018-08-18] MEDS: POTASSIUM CHLORIDE RIDER 20 MEQ in PREMIX 1 EACH IV PRN (07:02)
[2018-08-18] MEDS: ASPIRIN EC 325 MG TABLET PO SCH (10:48)
[2018-08-18] MEDS: FUROSEMIDE 40 MG TABLET PO SCH (10:48)
[2018-08-18] MEDS: ASCORBIC ACID 500 MG TABLET PO SCH ×2 (10:48→21:03)
[2018-08-18] MEDS: CARVEDILOL 25 MG TABLET PO SCH ×2 (10:49→21:01)
[2018-08-18] MEDS: CHLORHEXIDINE 0.12% ORAL RINSE 60 ML BOTTLE SWISH/SPIT SCH ×2 (10:49→21:03)
[2018-08-18] MEDS: FAMOTIDINE 20 MG/2 ML VIAL IV SCH ×2 (10:49→21:02)
[2018-08-18] MEDS: POTASSIUM CHLORIDE RIDER 10 MEQ in PREMIX 1 EACH IV PRN (11:09)
[2018-08-18] MEDS: hydrALAZINE 20 MG/1 ML VIAL IV PRN ×2 (17:12→21:03)
[2018-08-18] MEDS: ATORVASTATIN 40 MG TABLET PO SCH (21:02)
[2018-08-19] MEDS: INSULIN REGULAR 100 UNIT/ML SUBCUT SCH ×6 (01:10→21:30)
[2018-08-19] MEDS: methylPREDNISolone SOD SUC 40 MG/1 ML VIAL IV SCH ×3 (01:38→19:33)
[2018-08-19 04:25] LABS: Basophils % 0.1 % (0.0-0.8); Hematocrit 30.8 VOL% (42.0-52.0); Hemoglobin 10.1 GM/DL (14.0-18.0); Immature Granulocytes % 1.5 %; Immature Granulocytes Absolute 0.26 #; Lymphocytes # 0.5 10*3/uL (1.4-4.0); Mean Corpuscular HGB Conc 32.8 GM/DL (32-36); Mean Corpuscular Volume 91.4 FL (87-102); Mean Platelet Volume 10.6 FL (9.6-12.0); Monocytes % 10.4 % (1.7-12.7); Platelet Count 236 T/CUMM (130-400); Red Blood Count 3.37 MC/CUMM (3.8-5.5); Red Cell Distribution Width 14.6 % (9.3-17.3); White Blood Count 17.6 T/CUMM (4-12)
[2018-08-19 04:46] LABS: Calcium 8.6 MG/DL (8.5-10.1); Osmolality,Calculated 321.1 MOS/KG (273-304)
[2018-08-19 05:38] LABS: Band Neutrophils 2 % (0-10); Eosinophils 2 % (0-10); Lymphocytes 4 % (20-55); Segmented Neutrophils 81 % (50-85); Total Cells Counted 100
[2018-08-19 05:39] LABS: Platelet Estimate Normal
[2018-08-19] MEDS: ASPIRIN EC 325 MG TABLET PO SCH (09:37)
[2018-08-19] MEDS: FUROSEMIDE 40 MG TABLET PO SCH (09:37)
[2018-08-19] MEDS: CARVEDILOL 25 MG TABLET PO SCH ×2 (09:38→21:34)
[2018-08-19] MEDS: FAMOTIDINE 20 MG/2 ML VIAL IV SCH ×2 (09:38→21:34)
[2018-08-19] MEDS: ASCORBIC ACID 500 MG TABLET PO SCH ×2 (09:38→21:34)
[2018-08-19] MEDS: CHLORHEXIDINE 0.12% ORAL RINSE 60 ML BOTTLE SWISH/SPIT SCH ×2 (09:38→21:57)
[2018-08-19] MEDS: LOSARTAN 50 MG TABLET PO SCH (09:38)
[2018-08-19] MEDS: hydrALAZINE 20 MG/1 ML VIAL IV PRN (09:42)
[2018-08-19] MEDS: ATORVASTATIN 40 MG TABLET PO SCH (21:34)
[2018-08-20] MEDS: INSULIN REGULAR 100 UNIT/ML SUBCUT SCH ×6 (01:11→20:53)
[2018-08-20] MEDS: methylPREDNISolone SOD SUC 40 MG/1 ML VIAL IV SCH ×3 (02:45→18:30)
[2018-08-20 05:09] LABS: Basophils % 0.1 % (0.0-0.8); Hematocrit 29.2 VOL% (42.0-52.0); Hemoglobin 9.5 GM/DL (14.0-18.0); Immature Granulocytes % 1.7 %; Immature Granulocytes Absolute 0.38 #; Lymphocytes # 0.5 10*3/uL (1.4-4.0); Mean Corpuscular HGB Conc 32.5 GM/DL (32-36); Mean Corpuscular Volume 93.3 FL (87-102); Mean Platelet Volume 10.9 FL (9.6-12.0); Monocytes % 7.7 % (1.7-12.7); Neutrophils % 88.5 % (38.7-73.9); Platelet Count 220 T/CUMM (130-400); Red Blood Count 3.13 MC/CUMM (3.8-5.5); Red Cell Distribution Width 14.6 % (9.3-17.3); White Blood Count 22.9 T/CUMM (4-12)
[2018-08-20 05:42] LABS: Anisocytosis 1+; Band Neutrophils 1 % (0-10); Calcium 8.2 MG/DL (8.5-10.1); Lymphocytes 8 % (20-55); Osmolality,Calculated 322.7 MOS/KG (273-304); Platelet Estimate Adequate; Segmented Neutrophils 88 % (50-85); Total Cells Counted 100
[2018-08-20 05:43] LABS: Osmolality,Calculated 324.7 MOS/KG (273-304); Prealbumin 14.9 MG/DL (20-40)
[2018-08-20] MEDS: ASPIRIN EC 325 MG TABLET PO SCH (09:17)
[2018-08-20] MEDS: CARVEDILOL 25 MG TABLET PO SCH ×2 (09:17→20:54)
[2018-08-20] MEDS: LOSARTAN 50 MG TABLET PO SCH (09:17)
[2018-08-20] MEDS: FAMOTIDINE 20 MG/2 ML VIAL IV SCH ×2 (09:18→20:55)
[2018-08-20] MEDS: FUROSEMIDE 40 MG TABLET PO SCH (09:18)
[2018-08-20] MEDS: CHLORHEXIDINE 0.12% ORAL RINSE 60 ML BOTTLE SWISH/SPIT SCH ×2 (09:19→20:55)
[2018-08-20] MEDS: ASCORBIC ACID 500 MG TABLET PO SCH ×2 (09:19→20:54)
[2018-08-20] MEDS ORDERED: POTASSIUM PHOSPHATE 30 MMOL in SODIUM CHLORIDE 0.9% 250 ML IV ONE (11:00)
[2018-08-20 12:11] LABS: Apearance,Urine CLEAR (Clear); Bilirubin,Urine Negative (Negative); Blood, Urine Moderate mg/dL (Negative); Glucose,Urine (UA) Negative (Negative); Ketones,Urine Negative (Negative); Mucus,Urine Occasional /LPF (Occasional); Nitrite,Urine Negative (Negative); Protein,Urine Negative; RBC,Urine 92 /HPF (0-4); Squamous Epithelial Cell,Urine Occasional /HPF (0-10); Urine Color Yellow (Yellow); Urine Specific Gravity 1.011 (1.001-1.035); Urine Urobilinogen < 2.0 EU/DL (0.2-1.0); WBC,Urine 8 /HPF (0-6)
[2018-08-20] MEDS: ATORVASTATIN 40 MG TABLET PO SCH (20:54)
[2018-08-21] MEDS ORDERED: LIDOCAINE 2% TOP JELLY 20 ML VIAL INTRAURETH ONE (00:22)
[2018-08-21] MEDS: INSULIN REGULAR 100 UNIT/ML SUBCUT SCH ×6 (00:45→21:00)
[2018-08-21] MEDS: methylPREDNISolone SOD SUC 40 MG/1 ML VIAL IV SCH ×3 (01:02→18:03)
[2018-08-21 04:46] LABS: Basophils % 0.1 % (0.0-0.8); Hematocrit 29.6 VOL% (42.0-52.0); Hemoglobin 9.8 GM/DL (14.0-18.0); Immature Granulocytes % 2.5 %; Immature Granulocytes Absolute 0.75 #; Lymphocytes # 0.6 10*3/uL (1.4-4.0); Mean Corpuscular HGB Conc 33.1 GM/DL (32-36); Mean Corpuscular Volume 91.6 FL (87-102); Mean Platelet Volume 10.6 FL (9.6-12.0); Monocytes % 8.6 % (1.7-12.7); Neutrophils % 86.8 % (38.7-73.9); Platelet Count 218 T/CUMM (130-400); Red Blood Count 3.23 MC/CUMM (3.8-5.5); Red Cell Distribution Width 14.1 % (9.3-17.3); White Blood Count 30.3 T/CUMM (4-12)
[2018-08-21 05:02] LABS: Calcium 8.4 MG/DL (8.5-10.1); Osmolality,Calculated 307.1 MOS/KG (273-304)
[2018-08-21 05:12] LABS: Band Neutrophils 1 % (0-10); Hypochromasia 1+; Lymphocytes 3 % (20-55); Platelet Estimate Adequate; Segmented Neutrophils 90 % (50-85); Total Cells Counted 100
[2018-08-21] MEDS: PIPERACILLIN/TAZOBACTAM 3,375 MG in SODIUM CHLORIDE 0.9% 100 ML IV SCH ×3 (08:45→22:39)
[2018-08-21] MEDS: FAMOTIDINE 20 MG/2 ML VIAL IV SCH ×2 (08:47→21:01)
[2018-08-21] MEDS: FUROSEMIDE 40 MG TABLET PO SCH (08:47)
[2018-08-21] MEDS: CHLORHEXIDINE 0.12% ORAL RINSE 60 ML BOTTLE SWISH/SPIT SCH ×2 (08:48→21:01)
[2018-08-21] MEDS: ASPIRIN EC 325 MG TABLET PO SCH (08:48)
[2018-08-21] MEDS: LOSARTAN 50 MG TABLET PO SCH (08:48)
[2018-08-21] MEDS: ASCORBIC ACID 500 MG TABLET PO SCH ×2 (08:48→21:01)
[2018-08-21] MEDS: CARVEDILOL 25 MG TABLET PO SCH ×2 (08:48→21:01)
[2018-08-21] MEDS: ATORVASTATIN 40 MG TABLET PO SCH (21:10)
[2018-08-22] MEDS: methylPREDNISolone SOD SUC 40 MG/1 ML VIAL IV SCH ×3 (02:20→17:44)
[2018-08-22 04:54] LABS: Basophils % 0.1 % (0.0-0.8); Hematocrit 27.7 VOL% (42.0-52.0); Hemoglobin 9.4 GM/DL (14.0-18.0); Immature Granulocytes % 3.6 %; Immature Granulocytes Absolute 0.71 #; Lymphocytes # 0.6 10*3/uL (1.4-4.0); Lymphocytes % 3.2 % (21.2-54.2); Mean Corpuscular HGB Conc 33.9 GM/DL (32-36); Mean Corpuscular Volume 89.9 FL (87-102); Monocytes % 6.6 % (1.7-12.7); Neutrophils % 86.5 % (38.7-73.9); Platelet Count 204 T/CUMM (130-400); Red Blood Count 3.08 MC/CUMM (3.8-5.5); White Blood Count 19.8 T/CUMM (4-12)
[2018-08-22 05:19] LABS: Hypochromasia 1+; Lymphocytes 1 % (20-55); Ovalocytes Slight; Platelet Estimate Adequate; Segmented Neutrophils 97 % (50-85); Total Cells Counted 100
[2018-08-22 05:25] LABS: Calcium 7.6 MG/DL (8.5-10.1); Osmolality,Calculated 301.5 MOS/KG (273-304)
[2018-08-22] MEDS: FAMOTIDINE 20 MG/2 ML VIAL IV SCH ×2 (08:39→21:26)
[2018-08-22] MEDS: INSULIN REGULAR 100 UNIT/ML SUBCUT SCH ×4 (08:39→21:25)
[2018-08-22] MEDS: PIPERACILLIN/TAZOBACTAM 3,375 MG in SODIUM CHLORIDE 0.9% 100 ML IV SCH ×2 (08:39→21:21)
[2018-08-22] MEDS: CARVEDILOL 25 MG TABLET PO SCH ×2 (08:40→21:27)
[2018-08-22] MEDS: FUROSEMIDE 40 MG TABLET PO SCH (08:40)
[2018-08-22] MEDS: LOSARTAN 50 MG TABLET PO SCH (08:40)
[2018-08-22] MEDS: ASCORBIC ACID 500 MG TABLET PO SCH ×2 (08:40→21:26)
[2018-08-22] MEDS: CHLORHEXIDINE 0.12% ORAL RINSE 60 ML BOTTLE SWISH/SPIT SCH ×2 (08:40→21:27)
[2018-08-22] MEDS: ASPIRIN EC 325 MG TABLET PO SCH (08:40)
[2018-08-22] MEDS: ATORVASTATIN 40 MG TABLET PO SCH (21:26)
[2018-08-23] MEDS: methylPREDNISolone SOD SUC 40 MG/1 ML VIAL IV SCH ×4 (01:06→17:44)
[2018-08-23] MEDS: PIPERACILLIN/TAZOBACTAM 3,375 MG in SODIUM CHLORIDE 0.9% 100 ML IV SCH (03:13)
[2018-08-23 05:33] LABS: Basophils % 0.2 % (0.0-0.8); Hematocrit 27.6 VOL% (42.0-52.0); Immature Granulocytes % 3.5 %; Immature Granulocytes Absolute 0.68 #; Lymphocytes # 0.6 10*3/uL (1.4-4.0); Mean Corpuscular HGB Conc 32.6 GM/DL (32-36); Mean Corpuscular Volume 90.5 FL (87-102); Mean Platelet Volume 11.3 FL (9.6-12.0); Monocytes % 7.3 % (1.7-12.7); Platelet Count 202 T/CUMM (130-400); Red Blood Count 3.05 MC/CUMM (3.8-5.5); White Blood Count 19.4 T/CUMM (4-12)
[2018-08-23 06:06] LABS: Calcium 7.7 MG/DL (8.5-10.1); Osmolality,Calculated 304.5 MOS/KG (273-304)
[2018-08-23 06:14] LABS: Band Neutrophils 1 % (0-10); Lymphocytes 2 % (20-55); Platelet Estimate Adequate; Segmented Neutrophils 93 % (50-85); Total Cells Counted 100
[2018-08-23 06:15] LABS: Hypochromasia 1+; Microcytosis 1+; Polychromasia Few
[2018-08-23] MEDS: INSULIN REGULAR 100 UNIT/ML SUBCUT SCH ×4 (08:39→22:14)
[2018-08-23] MEDS: FAMOTIDINE 20 MG/2 ML VIAL IV SCH ×2 (08:41→22:15)
[2018-08-23] MEDS: CHLORHEXIDINE 0.12% ORAL RINSE 60 ML BOTTLE SWISH/SPIT SCH ×2 (08:41→22:15)
[2018-08-23] MEDS: FUROSEMIDE 40 MG TABLET PO SCH (08:43)
[2018-08-23] MEDS: LEVOFLOXACIN 750 MG TABLET PO SCH (08:43)
[2018-08-23] MEDS: APIXABAN 5 MG TABLET PO SCH ×2 (08:43→22:14)
[2018-08-23] MEDS: CARVEDILOL 25 MG TABLET PO SCH ×2 (08:44→22:14)
[2018-08-23] MEDS: LOSARTAN 50 MG TABLET PO SCH (08:44)
[2018-08-23] MEDS: ASPIRIN EC 325 MG TABLET PO SCH (08:44)
[2018-08-23] MEDS: ASCORBIC ACID 500 MG TABLET PO SCH ×2 (08:44→22:13)
[2018-08-23] MEDS: ATORVASTATIN 40 MG TABLET PO SCH (22:14)
[2018-08-24] MEDS: methylPREDNISolone SOD SUC 40 MG/1 ML VIAL IV SCH ×3 (01:02→17:03)
[2018-08-24 04:57] LABS: Basophils % 0.1 % (0.0-0.8); Hematocrit 29.1 VOL% (42.0-52.0); Hemoglobin 9.8 GM/DL (14.0-18.0); Immature Granulocytes % 3.7 %; Immature Granulocytes Absolute 0.89 #; Lymphocytes # 0.5 10*3/uL (1.4-4.0); Mean Corpuscular HGB Conc 33.7 GM/DL (32-36); Mean Corpuscular Volume 89.8 FL (87-102); Mean Platelet Volume 11.3 FL (9.6-12.0); Monocytes % 8.2 % (1.7-12.7); Platelet Count 237 T/CUMM (130-400); Red Blood Count 3.24 MC/CUMM (3.8-5.5)
[2018-08-24 05:27] LABS: Calcium 7.9 MG/DL (8.5-10.1); Osmolality,Calculated 303.7 MOS/KG (273-304)
[2018-08-24 05:29] LABS: Hypochromasia 1+; Lymphocytes 3 % (20-55); Platelet Estimate Adequate; Segmented Neutrophils 93 % (50-85); Total Cells Counted 100
[2018-08-24 05:30] LABS: Microcytosis Slight
[2018-08-24] MEDS: LEVOFLOXACIN 750 MG TABLET PO SCH (05:57)
[2018-08-24] MEDS: INSULIN REGULAR 100 UNIT/ML SUBCUT SCH ×4 (08:22→20:56)
[2018-08-24] MEDS: FUROSEMIDE 40 MG TABLET PO SCH (08:23)
[2018-08-24] MEDS: ASPIRIN EC 325 MG TABLET PO SCH (08:23)
[2018-08-24] MEDS: LOSARTAN 50 MG TABLET PO SCH (08:23)
[2018-08-24] MEDS: ASCORBIC ACID 500 MG TABLET PO SCH ×2 (08:23→20:57)
[2018-08-24] MEDS: APIXABAN 5 MG TABLET PO SCH ×2 (08:24→20:58)
[2018-08-24] MEDS: CARVEDILOL 25 MG TABLET PO SCH ×2 (08:24→20:57)
[2018-08-24] MEDS: CHLORHEXIDINE 0.12% ORAL RINSE 60 ML BOTTLE SWISH/SPIT SCH ×2 (08:26→20:58)
[2018-08-24] MEDS: FAMOTIDINE 20 MG/2 ML VIAL IV SCH ×2 (09:20→09:41)
[2018-08-24] MEDS ORDERED: HALOPERIDOL 5 MG/ML AMP IV ONE (11:43)
[2018-08-24] MEDS ORDERED: ZALEPLON 5 MG CAPSULE PO PRN (20:28)
[2018-08-24] MEDS ORDERED: MORPHINE 4 MG/1 ML VIAL IV PRN (20:28)
[2018-08-24] MEDS: ATORVASTATIN 40 MG TABLET PO SCH (20:57)
[2018-08-24] MEDS: oxyCODONE/ACETAMINOPHEN 5-325 MG TABLET PO PRN (20:57)
[2018-08-24] MEDS ORDERED: CALCIUM CARBONATE CHEW 500 MG TABLET PO PRN (21:30)
[2018-08-25] MEDS: methylPREDNISolone SOD SUC 40 MG/1 ML VIAL IV SCH ×3 (01:15→17:46)
[2018-08-25] MEDS: INSULIN REGULAR 100 UNIT/ML SUBCUT SCH ×4 (09:24→21:11)
[2018-08-25] MEDS: APIXABAN 5 MG TABLET PO SCH ×2 (09:39→21:14)
[2018-08-25] MEDS: ASPIRIN EC 325 MG TABLET PO SCH (09:39)
[2018-08-25] MEDS: FUROSEMIDE 40 MG TABLET PO SCH (09:39)
[2018-08-25] MEDS: LOSARTAN 50 MG TABLET PO SCH (09:39)
[2018-08-25] MEDS: CARVEDILOL 25 MG TABLET PO SCH ×2 (09:39→21:15)
[2018-08-25] MEDS: FAMOTIDINE 20 MG/2 ML VIAL IV SCH (09:40)
[2018-08-25] MEDS: CHLORHEXIDINE 0.12% ORAL RINSE 60 ML BOTTLE SWISH/SPIT SCH ×2 (09:40→22:31)
[2018-08-25] MEDS: ASCORBIC ACID 500 MG TABLET PO SCH ×2 (09:42→21:14)
[2018-08-25] MEDS: oxyCODONE/ACETAMINOPHEN 5-325 MG TABLET PO PRN (21:15)
[2018-08-25] MEDS: ATORVASTATIN 40 MG TABLET PO SCH (21:15)
[2018-08-26] MEDS: methylPREDNISolone SOD SUC 40 MG/1 ML VIAL IV SCH ×3 (01:58→17:08)
[2018-08-26 04:59] LABS: Basophils % 0.2 % (0.0-0.8); Hematocrit 28.5 VOL% (42.0-52.0); Hemoglobin 9.4 GM/DL (14.0-18.0); Immature Granulocytes % 1.9 %; Immature Granulocytes Absolute 0.48 #; Lymphocytes # 0.5 10*3/uL (1.4-4.0); Lymphocytes % 1.9 % (21.2-54.2); Mean Corpuscular Volume 89.3 FL (87-102); Mean Platelet Volume 10.9 FL (9.6-12.0); Monocytes % 6.7 % (1.7-12.7); Neutrophils % 89.3 % (38.7-73.9); Platelet Count 259 T/CUMM (130-400); Red Blood Count 3.19 MC/CUMM (3.8-5.5); White Blood Count 24.7 T/CUMM (4-12)
[2018-08-26 05:22] LABS: Calcium 7.4 MG/DL (8.5-10.1); Osmolality,Calculated 300.8 MOS/KG (273-304)
[2018-08-26 05:31] LABS: Band Neutrophils 1 % (0-10); Segmented Neutrophils 91 % (50-85)
[2018-08-26 05:32] LABS: Platelet Estimate Normal; Total Cells Counted 100
[2018-08-26] MEDS: LOSARTAN 50 MG TABLET PO SCH (08:59)
[2018-08-26] MEDS: ASPIRIN EC 325 MG TABLET PO SCH (08:59)
[2018-08-26] MEDS: APIXABAN 5 MG TABLET PO SCH ×2 (08:59→20:48)
[2018-08-26] MEDS: CARVEDILOL 25 MG TABLET PO SCH ×2 (08:59→20:48)
[2018-08-26] MEDS ORDERED: LEVOFLOXACIN 750 MG TABLET PO SCH (09:00)
[2018-08-26] MEDS: FAMOTIDINE 20 MG/2 ML VIAL IV SCH (09:00)
[2018-08-26] MEDS: FUROSEMIDE 40 MG TABLET PO SCH (09:00)
[2018-08-26] MEDS: ASCORBIC ACID 500 MG TABLET PO SCH ×2 (09:00→20:47)
[2018-08-26] MEDS: CHLORHEXIDINE 0.12% ORAL RINSE 60 ML BOTTLE SWISH/SPIT SCH ×2 (09:01→20:50)
[2018-08-26] MEDS: INSULIN REGULAR 100 UNIT/ML SUBCUT SCH ×4 (09:01→20:48)
[2018-08-26] MEDS ORDERED: GLUCAGON 1 MG VIAL ONE (17:17)
[2018-08-26] MEDS ORDERED: GLUCAGON 1 MG VIAL IM ONE (17:21)
[2018-08-26] MEDS: ATORVASTATIN 40 MG TABLET PO SCH (20:48)
[2018-08-27] MEDS: methylPREDNISolone SOD SUC 40 MG/1 ML VIAL IV SCH ×2 (01:02→09:54)
[2018-08-27 05:49] LABS: Basophils % 0.2 % (0.0-0.8); Hematocrit 29.1 VOL% (42.0-52.0); Hemoglobin 9.6 GM/DL (14.0-18.0); Immature Granulocytes % 1.3 %; Immature Granulocytes Absolute 0.31 #; Lymphocytes # 0.4 10*3/uL (1.4-4.0); Lymphocytes % 1.8 % (21.2-54.2); Mean Corpuscular Volume 89.5 FL (87-102); Mean Platelet Volume 10.9 FL (9.6-12.0); Monocytes % 10.6 % (1.7-12.7); Neutrophils % 86.1 % (38.7-73.9); Platelet Count 249 T/CUMM (130-400); Red Blood Count 3.25 MC/CUMM (3.8-5.5); Red Cell Distribution Width 14.3 % (9.3-17.3); White Blood Count 23.8 T/CUMM (4-12)
[2018-08-27 06:09] LABS: Calcium 7.7 MG/DL (8.5-10.1); Osmolality,Calculated 295.1 MOS/KG (273-304)
[2018-08-27 06:23] LABS: Segmented Neutrophils 93 % (50-85); Total Cells Counted 100
[2018-08-27 06:24] LABS: Anisocytosis Slight; Microcytosis 1+
[2018-08-27 06:25] LABS: Ovalocytes Slight; Platelet Estimate Normal
[2018-08-27] MEDS: INSULIN REGULAR 100 UNIT/ML SUBCUT SCH ×2 (09:24→14:10)
[2018-08-27] MEDS: ASPIRIN EC 325 MG TABLET PO SCH (09:50)
[2018-08-27] MEDS: ASCORBIC ACID 500 MG TABLET PO SCH (09:51)
[2018-08-27] MEDS: CHLORHEXIDINE 0.12% ORAL RINSE 60 ML BOTTLE SWISH/SPIT SCH (09:52)
[2018-08-27] MEDS: CARVEDILOL 25 MG TABLET PO SCH (09:52)
[2018-08-27] MEDS: FUROSEMIDE 40 MG TABLET PO SCH (09:52)
[2018-08-27] MEDS: FAMOTIDINE 20 MG/2 ML VIAL IV SCH (09:52)
[2018-08-27] MEDS: APIXABAN 5 MG TABLET PO SCH (09:52)
[2018-08-27] MEDS: LOSARTAN 50 MG TABLET PO SCH (09:52)
[2018-08-27 13:16] VITALS: BP 104/57
[2018-08-27] MEDS ORDERED: TAMSULOSIN 0.4 MG CAPSULE PO SCH (21:00)
== END 2018-08-27 14:27 | disposition swing bed (61) | DRG 234 ==
LOC: N.ED 10:35 → N.EDINP 12:29 → N.TELEN 15:14 → N.CVR 08-13 13:48 → N.ICU 08-14 14:32 → N.TELES 08-22 18:13
PROVIDERS: ADMIT Internal Medicine Cardiovascular Disease; ATTEND Thoracic Surgery (Cardiothoracic Vascular Surgery)
PROC: CLCCHCL (ICD-10-PCS; 2018-08-10 14:15)

== ENCOUNTER 2018-08-28 12:35 | Inpatient (IN) ==
[2018-08-28] MEDS ORDERED: SODIUM CHLORIDE 0.9% 500 ML IV STA (13:32)
[2018-08-28 14:22] LABS: Basophils % 0.2 % (0.0-0.8); Hemoglobin 9.4 GM/DL (14.0-18.0); Immature Granulocytes % 1.3 %; Immature Granulocytes Absolute 0.28 #; Lymphocytes # 0.4 10*3/uL (1.4-4.0); Mean Corpuscular HGB Conc 32.4 GM/DL (32-36); Mean Corpuscular Volume 91.5 FL (87-102); Mean Platelet Volume 10.6 FL (9.6-12.0); Monocytes % 14.6 % (1.7-12.7); Neutrophils % 81.9 % (38.7-73.9); Platelet Count 230 T/CUMM (130-400); Red Blood Count 3.17 MC/CUMM (3.8-5.5); Red Cell Distribution Width 14.5 % (9.3-17.3); White Blood Count 21.9 T/CUMM (4-12)
[2018-08-28 14:51] LABS: Alanine Aminotransferase 18 U/L (16-61); Albumin 2.2 G/DL (3.4-5.0); Alkaline Phosphatase 80 U/L (45-117); Aspartate Amino Transferase 16 U/L (0-37); Blood Urea Nitrogen 86 MG/DL (7-18); Calcium 7.2 MG/DL (8.5-10.1); Glucose 158 MG/DL (74-106); Osmolality,Calculated 296.2 MOS/KG (273-304); Total Protein 5.3 G/DL (6.4-8.3)
[2018-08-28] MEDS ORDERED: SODIUM CHLORIDE 0.9% 2,200 ML IV ONE (14:52)
[2018-08-28 14:58] LABS: Apearance,Urine CLEAR (Clear); Bilirubin,Urine Negative (Negative); Blood, Urine Small mg/dL (Negative); Glucose,Urine (UA) Negative (Negative); Hyaline Casts,Urine 10 /LPF (0-3); Ketones,Urine Negative (Negative); Mucus,Urine Occasional /LPF (Occasional); Nitrite,Urine Negative (Negative); Protein,Urine Negative; RBC,Urine 24 /HPF (0-4); Squamous Epithelial Cell,Urine Occasional /HPF (0-10); Urine Color Yellow (Yellow); Urine Specific Gravity 1.014 (1.001-1.035); Urine Urobilinogen < 2.0 EU/DL (0.2-1.0); WBC,Urine 10 /HPF (0-6)
[2018-08-28 14:58] LABS: Troponin I 0.101 NG/ML (0.00-0.045)
[2018-08-28] MEDS ORDERED: SODIUM CHLORIDE 0.9% 100 ML IV ONE (15:02)
[2018-08-28] MEDS ORDERED: MEROPENEM 1,000 MG VIAL IV ONE (15:02)
[2018-08-28] MEDS: MEROPENEM 500 MG in SODIUM CHLORIDE 0.9% 100 ML IV SCH (15:08)
[2018-08-28] MEDS ORDERED: LEVOFLOXACIN INJ 500 MG in PREMIX 1 EACH IV SCH (16:30)
[2018-08-28] MEDS ORDERED: GLUCAGON 1 MG VIAL IM PRN (16:44)
[2018-08-28] MEDS ORDERED: GLUCAGON 1 MG VIAL SUBCUT PRN (16:44)
[2018-08-28] MEDS ORDERED: MAGNESIUM HYDROXIDE SUSP 30 ML UDCUP PO PRN (16:44)
[2018-08-28] MEDS ORDERED: ONDANSETRON 4 MG TABLET PO PRN (16:44)
[2018-08-28] MEDS ORDERED: DEXTROSE 50% 25 GM/50 ML VIAL IV PRN (16:44)
[2018-08-28] MEDS: SODIUM CHLORIDE 0.9% 1,000 ML IV SCH (16:53)
[2018-08-28] MEDS: INSULIN LISPRO 100 UNIT/ML SUBCUT SCH ×2 (16:55→21:41)
[2018-08-28] MEDS ORDERED: ALUMINUM/MAGNES/SIMETH MAX STR 30 ML UDCUP PO PRN (17:00)
[2018-08-28 18:24] LABS: Band Neutrophils 1 % (0-10); Lymphocytes 3 % (20-55); Segmented Neutrophils 86 % (50-85); Total Cells Counted 100
[2018-08-28 18:26] LABS: Macrocytosis Slight; Platelet Estimate Adequate
[2018-08-28] MEDS: APIXABAN 5 MG TABLET PO SCH (21:41)
[2018-08-28] MEDS: TAMSULOSIN 0.4 MG CAPSULE PO SCH (21:41)
[2018-08-28] MEDS: ASCORBIC ACID 500 MG TABLET PO SCH (21:41)
[2018-08-28] MEDS: ATORVASTATIN 40 MG TABLET PO SCH (21:41)
[2018-08-29] MEDS: MEROPENEM 500 MG in SODIUM CHLORIDE 0.9% 100 ML IV SCH (03:38)
[2018-08-29 04:36] LABS: Basophils % 0.1 % (0.0-0.8); Eosinophils # 0.1 10*3/uL (0.0-0.87); Eosinophils % 0.3 % (0.00-10.9); Hematocrit 26.3 VOL% (42.0-52.0); Hemoglobin 8.6 GM/DL (14.0-18.0); Immature Granulocytes Absolute 0.27 #; Lymphocytes # 0.6 10*3/uL (1.4-4.0); Lymphocytes % 2.1 % (21.2-54.2); Mean Corpuscular HGB Conc 32.7 GM/DL (32-36); Mean Corpuscular Volume 91.6 FL (87-102); Mean Platelet Volume 11.3 FL (9.6-12.0); Monocytes % 12.3 % (1.7-12.7); Neutrophils % 84.2 % (38.7-73.9); Platelet Count 217 T/CUMM (130-400); Red Blood Count 2.87 MC/CUMM (3.8-5.5); Red Cell Distribution Width 14.6 % (9.3-17.3); White Blood Count 26.6 T/CUMM (4-12)
[2018-08-29 05:06] LABS: Calcium 7.2 MG/DL (8.5-10.1); Osmolality,Calculated 295.7 MOS/KG (273-304)
[2018-08-29 05:20] LABS: Eosinophils 1 % (0-10); Hypochromasia 1+; Lymphocytes 1 % (20-55); Macrocytosis Slight; Platelet Estimate Adequate; Segmented Neutrophils 87 % (50-85); Total Cells Counted 100
[2018-08-29] MEDS: SODIUM CHLORIDE 0.9% 1,000 ML IV SCH ×2 (07:09→21:55)
[2018-08-29] MEDS: MULTIVITAMIN (BEROCCA) TABLET PO SCH (08:59)
[2018-08-29] MEDS: ASPIRIN EC 325 MG TABLET PO SCH (08:59)
[2018-08-29] MEDS: ASCORBIC ACID 500 MG TABLET PO SCH ×2 (08:59→21:55)
[2018-08-29] MEDS: PANTOPRAZOLE 40 MG TABLET PO SCH (09:00)
[2018-08-29] MEDS: predniSONE 5 MG TABLET PO SCH (09:00)
[2018-08-29] MEDS: APIXABAN 5 MG TABLET PO SCH ×2 (09:00→21:55)
[2018-08-29] MEDS: INSULIN LISPRO 100 UNIT/ML SUBCUT SCH ×4 (09:02→21:57)
[2018-08-29] MEDS: ACETAMINOPHEN 325 MG TABLET PO PRN ×2 (11:48→23:33)
[2018-08-29] MEDS: cefTRIAXone 1,000 MG in SYRINGE 1 EACH IV SCH (12:33)
[2018-08-29] MEDS: ATORVASTATIN 40 MG TABLET PO SCH (21:55)
[2018-08-29] MEDS: TAMSULOSIN 0.4 MG CAPSULE PO SCH (21:55)
[2018-08-29] MEDS: MORPHINE 4 MG/1 ML VIAL IV PRN (21:58)
[2018-08-30 04:33] LABS: Basophils % 0.1 % (0.0-0.8); Eosinophils # 0.1 10*3/uL (0.0-0.87); Eosinophils % 0.5 % (0.00-10.9); Hemoglobin 8.2 GM/DL (14.0-18.0); Immature Granulocytes % 0.7 %; Immature Granulocytes Absolute 0.13 #; Lymphocytes # 0.6 10*3/uL (1.4-4.0); Lymphocytes % 3.4 % (21.2-54.2); Mean Corpuscular HGB Conc 32.8 GM/DL (32-36); Mean Corpuscular Volume 90.9 FL (87-102); Mean Platelet Volume 11.2 FL (9.6-12.0); Monocytes % 11.7 % (1.7-12.7); Neutrophils % 83.6 % (38.7-73.9); Platelet Count 185 T/CUMM (130-400); Red Blood Count 2.75 MC/CUMM (3.8-5.5); Red Cell Distribution Width 14.6 % (9.3-17.3); White Blood Count 18.3 T/CUMM (4-12)
[2018-08-30 04:59] LABS: Calcium 7.2 MG/DL (8.5-10.1); Osmolality,Calculated 290.7 MOS/KG (273-304)
[2018-08-30 05:24] LABS: Band Neutrophils 4 % (0-10); Lymphocytes 3 % (20-55); Segmented Neutrophils 88 % (50-85); Total Cells Counted 100
[2018-08-30 05:26] LABS: Acanthocytes Few; Anisocytosis 1+; Platelet Estimate Adequate
[2018-08-30] MEDS: ACETAMINOPHEN 325 MG TABLET PO PRN ×2 (07:52→15:00)
[2018-08-30] MEDS: INSULIN LISPRO 100 UNIT/ML SUBCUT SCH ×4 (07:57→20:37)
[2018-08-30] MEDS: ASPIRIN EC 325 MG TABLET PO SCH (09:15)
[2018-08-30] MEDS: MULTIVITAMIN (BEROCCA) TABLET PO SCH (09:15)
[2018-08-30] MEDS: PANTOPRAZOLE 40 MG TABLET PO SCH (09:16)
[2018-08-30] MEDS: predniSONE 5 MG TABLET PO SCH (09:16)
[2018-08-30] MEDS: ASCORBIC ACID 500 MG TABLET PO SCH ×2 (09:16→20:34)
[2018-08-30] MEDS: APIXABAN 5 MG TABLET PO SCH ×2 (09:16→20:34)
[2018-08-30] MEDS: CARVEDILOL 3.125 MG TABLET PO SCH ×2 (09:49→20:34)
[2018-08-30] MEDS: cefTRIAXone 1,000 MG in SYRINGE 1 EACH IV SCH (11:08)
[2018-08-30] MEDS: SODIUM CHLORIDE 0.9% 1,000 ML IV SCH (12:15)
[2018-08-30] MEDS: TAMSULOSIN 0.4 MG CAPSULE PO SCH (20:34)
[2018-08-30] MEDS: ATORVASTATIN 40 MG TABLET PO SCH (20:34)
[2018-08-31] MEDS: ACETAMINOPHEN 325 MG TABLET PO PRN ×2 (00:09→19:48)
[2018-08-31] MEDS: SODIUM CHLORIDE 0.9% 1,000 ML IV SCH ×2 (00:38→13:21)
[2018-08-31] MEDS: MORPHINE 4 MG/1 ML VIAL IV PRN (02:47)
[2018-08-31 04:46] LABS: Basophils % 0.1 % (0.0-0.8); Eosinophils # 0.2 10*3/uL (0.0-0.87); Eosinophils % 0.9 % (0.00-10.9); Hematocrit 23.3 VOL% (42.0-52.0); Hemoglobin 7.8 GM/DL (14.0-18.0); Immature Granulocytes % 1.1 %; Immature Granulocytes Absolute 0.18 #; Lymphocytes # 0.6 10*3/uL (1.4-4.0); Lymphocytes % 3.4 % (21.2-54.2); Mean Corpuscular HGB Conc 33.5 GM/DL (32-36); Mean Corpuscular Volume 90.3 FL (87-102); Mean Platelet Volume 12.1 FL (9.6-12.0); Monocytes % 12.9 % (1.7-12.7); Neutrophils % 81.6 % (38.7-73.9); Platelet Count 138 T/CUMM (130-400); Red Blood Count 2.58 MC/CUMM (3.8-5.5); Red Cell Distribution Width 14.7 % (9.3-17.3); White Blood Count 16.3 T/CUMM (4-12)
[2018-08-31 05:05] LABS: Calcium 7.3 MG/DL (8.5-10.1); Osmolality,Calculated 287.5 MOS/KG (273-304)
[2018-08-31 05:48] LABS: Lymphocytes 4 % (20-55); Platelet Estimate Decreased; Segmented Neutrophils 84 % (50-85); Total Cells Counted 100
[2018-08-31] MEDS: MULTIVITAMIN (BEROCCA) TABLET PO SCH (10:23)
[2018-08-31] MEDS: PANTOPRAZOLE 40 MG TABLET PO SCH (10:23)
[2018-08-31] MEDS: ASCORBIC ACID 500 MG TABLET PO SCH ×2 (10:23→21:00)
[2018-08-31] MEDS: ASPIRIN EC 325 MG TABLET PO SCH (10:23)
[2018-08-31] MEDS: CARVEDILOL 3.125 MG TABLET PO SCH ×2 (10:23→21:01)
[2018-08-31] MEDS: APIXABAN 5 MG TABLET PO SCH ×2 (10:23→21:01)
[2018-08-31] MEDS: INSULIN LISPRO 100 UNIT/ML SUBCUT SCH ×4 (10:24→20:59)
[2018-08-31] MEDS: predniSONE 5 MG TABLET PO SCH (10:24)
[2018-08-31] MEDS ORDERED: SODIUM CHLORIDE 0.9% 1,000 ML IV PRN (10:57)
[2018-08-31] MEDS: cefTRIAXone 1,000 MG in SYRINGE 1 EACH IV SCH (12:21)
[2018-08-31] MEDS: TAMSULOSIN 0.4 MG CAPSULE PO SCH (21:00)
[2018-08-31] MEDS: ATORVASTATIN 40 MG TABLET PO SCH (21:01)
[2018-08-31] MEDS ORDERED: ZOLPIDEM 5 MG TABLET PO ONE (21:39)
[2018-08-31 22:00] LABS: Hematocrit 32.4 VOL% (42.0-52.0); Hemoglobin 10.4 GM/DL (14.0-18.0)
[2018-09-01 03:56] LABS: Basophils % 0.1 % (0.0-0.8); Eosinophils # 0.1 10*3/uL (0.0-0.87); Eosinophils % 0.5 % (0.00-10.9); Hematocrit 32.2 VOL% (42.0-52.0); Hemoglobin 10.8 GM/DL (14.0-18.0); Immature Granulocytes % 1.4 %; Immature Granulocytes Absolute 0.29 #; Lymphocytes # 0.6 10*3/uL (1.4-4.0); Lymphocytes % 2.7 % (21.2-54.2); Mean Corpuscular HGB Conc 33.5 GM/DL (32-36); Mean Corpuscular Volume 89.4 FL (87-102); Mean Platelet Volume 11.3 FL (9.6-12.0); Monocytes % 11.4 % (1.7-12.7); Neutrophils % 83.9 % (38.7-73.9); Platelet Count 140 T/CUMM (130-400); Red Cell Distribution Width 14.7 % (9.3-17.3); White Blood Count 21.4 T/CUMM (4-12)
[2018-09-01 04:29] LABS: Calcium 7.4 MG/DL (8.5-10.1); Osmolality,Calculated 285.3 MOS/KG (273-304)
[2018-09-01 04:30] LABS: Burr Cells 2+; Hypochromasia Slight; Lymphocytes 1 % (20-55); Segmented Neutrophils 91 % (50-85); Total Cells Counted 100
[2018-09-01 04:31] LABS: Ovalocytes 1+; Platelet Estimate Normal
[2018-09-01] MEDS: MULTIVITAMIN (BEROCCA) TABLET PO SCH (08:55)
[2018-09-01] MEDS: ASPIRIN EC 325 MG TABLET PO SCH (08:55)
[2018-09-01] MEDS: predniSONE 5 MG TABLET PO SCH (08:55)
[2018-09-01] MEDS: CARVEDILOL 3.125 MG TABLET PO SCH ×2 (08:56→20:25)
[2018-09-01] MEDS: APIXABAN 5 MG TABLET PO SCH (08:56)
[2018-09-01] MEDS: PANTOPRAZOLE 40 MG TABLET PO SCH (08:56)
[2018-09-01] MEDS: ASCORBIC ACID 500 MG TABLET PO SCH ×2 (08:56→20:24)
[2018-09-01] MEDS: INSULIN LISPRO 100 UNIT/ML SUBCUT SCH ×4 (08:57→20:53)
[2018-09-01] MEDS: SODIUM CHLORIDE 0.9% 1,000 ML IV SCH (09:00)
[2018-09-01] MEDS: LOSARTAN 25 MG TABLET PO SCH (09:05)
[2018-09-01] MEDS: FLUCONAZOLE 200 MG TABLET PO SCH (09:05)
[2018-09-01] MEDS: cefTRIAXone 1,000 MG in SYRINGE 1 EACH IV SCH (15:00)
[2018-09-01] MEDS: ACETAMINOPHEN 325 MG TABLET PO PRN ×2 (15:08→22:15)
[2018-09-01 18:46] LABS: Hematocrit 33.7 VOL% (42.0-52.0); Hemoglobin 11.3 GM/DL (14.0-18.0)
[2018-09-01] MEDS: ATORVASTATIN 40 MG TABLET PO SCH (20:24)
[2018-09-01] MEDS: TAMSULOSIN 0.4 MG CAPSULE PO SCH (20:24)
[2018-09-01] MEDS ORDERED: ZALEPLON 5 MG CAPSULE PO PRN (20:36)
[2018-09-02] MEDS: MORPHINE 4 MG/1 ML VIAL IV PRN (00:55)
[2018-09-02] MEDS ORDERED: ZOLPIDEM 5 MG TABLET PO PRN (01:30)
[2018-09-02] MEDS: INSULIN LISPRO 100 UNIT/ML SUBCUT SCH ×4 (07:44→21:07)
[2018-09-02] MEDS: MULTIVITAMIN (BEROCCA) TABLET PO SCH (08:55)
[2018-09-02] MEDS: ASCORBIC ACID 500 MG TABLET PO SCH ×2 (08:55→21:06)
[2018-09-02] MEDS: LOSARTAN 25 MG TABLET PO SCH (08:55)
[2018-09-02] MEDS: FLUCONAZOLE 200 MG TABLET PO SCH (08:55)
[2018-09-02] MEDS: ASPIRIN EC 325 MG TABLET PO SCH (08:55)
[2018-09-02] MEDS: CARVEDILOL 3.125 MG TABLET PO SCH ×2 (08:56→21:06)
[2018-09-02] MEDS: PANTOPRAZOLE 40 MG TABLET PO SCH (08:56)
[2018-09-02] MEDS: predniSONE 5 MG TABLET PO SCH (08:56)
[2018-09-02] MEDS: cefTRIAXone 1,000 MG in SYRINGE 1 EACH IV SCH (11:21)
[2018-09-02] MEDS: traZODone 50 MG TABLET PO SCH (21:06)
[2018-09-02] MEDS: TAMSULOSIN 0.4 MG CAPSULE PO SCH (21:06)
[2018-09-02] MEDS: ATORVASTATIN 40 MG TABLET PO SCH (21:07)
[2018-09-03 04:36] LABS: Basophils % 0.1 % (0.0-0.8); Eosinophils # 0.2 10*3/uL (0.0-0.87); Eosinophils % 1.3 % (0.00-10.9); Hematocrit 29.4 VOL% (42.0-52.0); Hemoglobin 9.9 GM/DL (14.0-18.0); Immature Granulocytes % 0.7 %; Immature Granulocytes Absolute 0.11 #; Lymphocytes # 0.9 10*3/uL (1.4-4.0); Lymphocytes % 5.7 % (21.2-54.2); Mean Corpuscular HGB Conc 33.7 GM/DL (32-36); Mean Corpuscular Volume 88.8 FL (87-102); Mean Platelet Volume 10.7 FL (9.6-12.0); Monocytes % 10.8 % (1.7-12.7); Neutrophils % 81.4 % (38.7-73.9); Platelet Count 131 T/CUMM (130-400); Red Blood Count 3.31 MC/CUMM (3.8-5.5); Red Cell Distribution Width 15.3 % (9.3-17.3); White Blood Count 15.6 T/CUMM (4-12)
[2018-09-03] MEDS: INSULIN LISPRO 100 UNIT/ML SUBCUT SCH ×4 (07:40→21:00)
[2018-09-03] MEDS: ASPIRIN EC 325 MG TABLET PO SCH (08:50)
[2018-09-03] MEDS: MULTIVITAMIN (BEROCCA) TABLET PO SCH (08:50)
[2018-09-03] MEDS: ASCORBIC ACID 500 MG TABLET PO SCH ×2 (08:51→20:57)
[2018-09-03] MEDS: PANTOPRAZOLE 40 MG TABLET PO SCH (08:51)
[2018-09-03] MEDS: predniSONE 5 MG TABLET PO SCH (08:51)
[2018-09-03] MEDS: LOSARTAN 25 MG TABLET PO SCH (08:51)
[2018-09-03] MEDS: CARVEDILOL 3.125 MG TABLET PO SCH ×2 (08:52→21:00)
[2018-09-03] MEDS: FLUCONAZOLE 200 MG TABLET PO SCH (08:52)
[2018-09-03] MEDS: cefTRIAXone 1,000 MG in SYRINGE 1 EACH IV SCH (12:09)
[2018-09-03] MEDS ORDERED: FUROSEMIDE 40 MG/4 ML VIAL IV SCH (16:00)
[2018-09-03] MEDS: traZODone 50 MG TABLET PO SCH (20:56)
[2018-09-03] MEDS: TAMSULOSIN 0.4 MG CAPSULE PO SCH (20:58)
[2018-09-03] MEDS: ACETAMINOPHEN 325 MG TABLET PO PRN (20:58)
[2018-09-03] MEDS: ATORVASTATIN 40 MG TABLET PO SCH (21:00)
[2018-09-04] MEDS: INSULIN LISPRO 100 UNIT/ML SUBCUT SCH ×3 (09:13→17:30)
[2018-09-04] MEDS: PANTOPRAZOLE 40 MG TABLET PO SCH (09:14)
[2018-09-04] MEDS: LOSARTAN 25 MG TABLET PO SCH (09:14)
[2018-09-04] MEDS: MULTIVITAMIN (BEROCCA) TABLET PO SCH (09:14)
[2018-09-04] MEDS: FLUCONAZOLE 200 MG TABLET PO SCH (09:14)
[2018-09-04] MEDS: CARVEDILOL 3.125 MG TABLET PO SCH (09:14)
[2018-09-04] MEDS: predniSONE 5 MG TABLET PO SCH (09:14)
[2018-09-04] MEDS: ASCORBIC ACID 500 MG TABLET PO SCH ×2 (09:14→21:13)
[2018-09-04] MEDS: ASPIRIN EC 325 MG TABLET PO SCH (09:15)
[2018-09-04] MEDS ORDERED: MINERAL OIL 30 ML UDCUP PO ONE (11:30)
[2018-09-04] MEDS: LACTULOSE 20 GM/30 ML UDCUP PO SCH ×2 (12:28→21:14)
[2018-09-04] MEDS: DOCUSATE SODIUM 100 MG CAPSULE PO SCH ×2 (12:28→21:14)
[2018-09-04] MEDS: POLYETHYLENE GLYCOL POWDER 17 GM PACK PO SCH ×3 (12:28→23:00)
[2018-09-04] MEDS: cefTRIAXone 1,000 MG in SYRINGE 1 EACH IV SCH (12:29)
[2018-09-04] MEDS ORDERED: BISACODYL 10 MG SUPP RECTAL ONE (17:53)
[2018-09-04] MEDS: TAMSULOSIN 0.4 MG CAPSULE PO SCH (21:13)
[2018-09-04] MEDS: traZODone 50 MG TABLET PO SCH (21:14)
[2018-09-04] MEDS: SENNA 8.6 MG TABLET PO SCH (21:14)
[2018-09-04] MEDS: CARVEDILOL 12.5 MG TABLET PO SCH (21:14)
[2018-09-04] MEDS: ATORVASTATIN 40 MG TABLET PO SCH (21:14)
[2018-09-04] MEDS: FINASTERIDE 5 MG TABLET PO SCH (21:15)
[2018-09-05 04:39] LABS: Basophils % 0.1 % (0.0-0.8); Eosinophils # 0.2 10*3/uL (0.0-0.87); Hematocrit 27.3 VOL% (42.0-52.0); Immature Granulocytes % 0.8 %; Immature Granulocytes Absolute 0.12 #; Lymphocytes # 0.9 10*3/uL (1.4-4.0); Lymphocytes % 5.9 % (21.2-54.2); Mean Corpuscular Volume 89.5 FL (87-102); Monocytes % 8.1 % (1.7-12.7); Neutrophils % 84.1 % (38.7-73.9); Red Blood Count 3.05 MC/CUMM (3.8-5.5); Red Cell Distribution Width 14.9 % (9.3-17.3); White Blood Count 14.4 T/CUMM (4-12)
[2018-09-05 04:53] LABS: Platelet Count 55 T/CUMM (130-400)
[2018-09-05] MEDS: POLYETHYLENE GLYCOL POWDER 17 GM PACK PO SCH ×3 (05:00→19:08)
[2018-09-05 05:03] LABS: Calcium 7.2 MG/DL (8.5-10.1)
[2018-09-05] MEDS: LACTULOSE 20 GM/30 ML UDCUP PO SCH ×2 (08:59→22:03)
[2018-09-05] MEDS: DOCUSATE SODIUM 100 MG CAPSULE PO SCH ×2 (08:59→22:03)
[2018-09-05] MEDS: MULTIVITAMIN (BEROCCA) TABLET PO SCH (08:59)
[2018-09-05] MEDS: LOSARTAN 25 MG TABLET PO SCH (08:59)
[2018-09-05] MEDS: PANTOPRAZOLE 40 MG TABLET PO SCH (08:59)
[2018-09-05] MEDS: CARVEDILOL 12.5 MG TABLET PO SCH ×2 (08:59→19:15)
[2018-09-05] MEDS: INSULIN LISPRO 100 UNIT/ML SUBCUT SCH ×5 (08:59→22:03)
[2018-09-05] MEDS: predniSONE 5 MG TABLET PO SCH (08:59)
[2018-09-05] MEDS: ASCORBIC ACID 500 MG TABLET PO SCH ×2 (08:59→21:26)
[2018-09-05] MEDS: FLUCONAZOLE 200 MG TABLET PO SCH (08:59)
[2018-09-05] MEDS: ASPIRIN EC 325 MG TABLET PO SCH (08:59)
[2018-09-05] MEDS ORDERED: cefTRIAXone 1,000 MG in SYRINGE 1 EACH IV ONE (10:53)
[2018-09-05] MEDS ORDERED: SODIUM CHLORIDE 0.9% 1,000 ML IV PRN ×2 (11:43→12:35)
[2018-09-05] MEDS ORDERED: SEVOFLURANE 1 UNIT/15 MINUTE INH ONE (13:50)
[2018-09-05] MEDS ORDERED: fentaNYL 100 MCG/2 ML VIAL ONE (13:50)
[2018-09-05] MEDS ORDERED: PROPOFOL 200 MG/20 ML VIAL IV ONE (13:50)
[2018-09-05] MEDS ORDERED: PHENYLEPHRINE 1 MG/10 ML SYRINGE IV ONE (13:50)
[2018-09-05] MEDS ORDERED: SODIUM CHLORIDE 0.9% 1,000 ML IV ONE (13:50)
[2018-09-05] MEDS: ATORVASTATIN 40 MG TABLET PO SCH (21:26)
[2018-09-05] MEDS: SENNA 8.6 MG TABLET PO SCH (21:26)
[2018-09-05] MEDS: FINASTERIDE 5 MG TABLET PO SCH (21:26)
[2018-09-05] MEDS: TAMSULOSIN 0.4 MG CAPSULE PO SCH (21:26)
[2018-09-06] MEDS: POLYETHYLENE GLYCOL POWDER 17 GM PACK PO SCH ×2 (03:22→06:28)
[2018-09-06 05:56] LABS: Basophils % 0.1 % (0.0-0.8); Eosinophils # 0.1 10*3/uL (0.0-0.87); Eosinophils % 0.8 % (0.00-10.9); Hematocrit 26.3 VOL% (42.0-52.0); Hemoglobin 8.8 GM/DL (14.0-18.0); Immature Granulocytes % 0.7 %; Lymphocytes # 0.7 10*3/uL (1.4-4.0); Lymphocytes % 4.9 % (21.2-54.2); Mean Corpuscular HGB Conc 33.5 GM/DL (32-36); Mean Corpuscular Volume 90.4 FL (87-102); Mean Platelet Volume 11.4 FL (9.6-12.0); Monocytes % 6.2 % (1.7-12.7); Neutrophils % 87.3 % (38.7-73.9); Red Blood Count 2.91 MC/CUMM (3.8-5.5); Red Cell Distribution Width 14.9 % (9.3-17.3); White Blood Count 14.9 T/CUMM (4-12)
[2018-09-06 06:19] LABS: Platelet Count 97 T/CUMM (130-400)
[2018-09-06 06:36] LABS: Band Neutrophils 1 % (0-10); Lymphocytes 5 % (20-55); Segmented Neutrophils 90 % (50-85); Total Cells Counted 100
[2018-09-06 06:37] LABS: Platelet Estimate Decreased
[2018-09-06] MEDS: ACETAMINOPHEN 325 MG TABLET PO PRN (06:48)
[2018-09-06 06:53] LABS: % Iron Saturation 15.8 % (18-50); Ferritin 744.9 ng/ml (26-388)
[2018-09-06 07:04] LABS: Sedimentation Rate-Westergren 22 MM/HR (0-20)
[2018-09-06 08:17] LABS: Folate 15.1 NG/ML (5.4-24.0); Vitamin B12 990 PG/ML (211-911)
[2018-09-06] MEDS: MULTIVITAMIN (BEROCCA) TABLET PO SCH (09:23)
[2018-09-06] MEDS: ASCORBIC ACID 500 MG TABLET PO SCH (09:23)
[2018-09-06] MEDS: LOSARTAN 25 MG TABLET PO SCH (09:23)
[2018-09-06] MEDS: ASPIRIN EC 325 MG TABLET PO SCH (09:23)
[2018-09-06] MEDS: CARVEDILOL 12.5 MG TABLET PO SCH (09:24)
[2018-09-06] MEDS: PANTOPRAZOLE 40 MG TABLET PO SCH (09:24)
[2018-09-06] MEDS: predniSONE 5 MG TABLET PO SCH (09:24)
[2018-09-06] MEDS: INSULIN LISPRO 100 UNIT/ML SUBCUT SCH (09:25)
[2018-09-06] MEDS: DOCUSATE SODIUM 100 MG CAPSULE PO SCH (09:26)
[2018-09-06] MEDS: LACTULOSE 20 GM/30 ML UDCUP PO SCH (09:26)
[2018-09-06 12:38] VITALS: BP 134/63
[2018-09-09 16:01] LABS: HIT Interpretation Negative (Negative)
[2018-09-10 10:33] LABS: Hemoglobin A1 (Alkaline) 97.3 % (96.5-98.5); Hemoglobin A2 (Alkaline) 2.7 % (1.5-3.5)
== END 2018-09-06 13:36 | disposition swing bed (61) | DRG 682 ==
LOC: EDUNIT# → EDBD → N.ED 12:35 → N.EDINP 15:20 → SUATTDRO 15:20 → N.EDINP 16:20 → N.ICU 16:42 → N.TELES 08-30 06:59
PROVIDERS: ADMIT Internal Medicine; ATTEND Hospitalist

== ENCOUNTER 2018-11-12 10:12 | Observation (INO) ==
[2018-11-12] MEDS ORDERED: NITROGLYCERIN 2% OINT 1 INCH/GM PACK TOP STA (10:46)
[2018-11-12] MEDS ORDERED: MORPHINE 4 MG/1 ML VIAL IV STA (10:46)
[2018-11-12] MEDS ORDERED: ONDANSETRON 4 MG/2 ML VIAL IV STA (10:46)
[2018-11-12] MEDS ORDERED: ASPIRIN 325 MG TABLET PO STA (10:46)
[2018-11-12 11:35] LABS: Basophils # 0.1 10*3/uL (0.0-0.2); Basophils % 0.4 % (0.0-0.8); Eosinophils # 0.5 10*3/uL (0.0-0.87); Eosinophils % 3.7 % (0.00-10.9); Hematocrit 34.6 VOL% (42.0-52.0); Hemoglobin 11.2 GM/DL (14.0-18.0); Immature Granulocytes % 0.7 %; Lymphocytes # 1.5 10*3/uL (1.4-4.0); Lymphocytes % 10.7 % (21.2-54.2); Mean Corpuscular HGB Conc 32.4 GM/DL (32-36); Mean Platelet Volume 10.1 FL (9.6-12.0); Monocytes % 10.5 % (1.7-12.7); Platelet Count 301 T/CUMM (130-400); Red Blood Count 3.76 MC/CUMM (3.8-5.5); Red Cell Distribution Width 13.5 % (9.3-17.3); White Blood Count 14.2 T/CUMM (4-12)
[2018-11-12 11:49] LABS: INR 0.9; PT Patient Result 10.2 SECS (9.6-12.2)
[2018-11-12 12:02] LABS: Alanine Aminotransferase 9 U/L (16-61); Albumin 2.8 G/DL (3.4-5.0); Alkaline Phosphatase 160 U/L (45-117); Aspartate Amino Transferase 14 U/L (0-37); Blood Urea Nitrogen 18 MG/DL (7-18); Calcium 8.6 MG/DL (8.5-10.1); Glucose 98 MG/DL (74-106); Osmolality,Calculated 284.1 MOS/KG (273-304); Total Protein 6.8 G/DL (6.4-8.3); Troponin I < 0.015 NG/ML (0.00-0.045)
[2018-11-12] MEDS ORDERED: MORPHINE 4 MG/1 ML VIAL IV PRN (14:30)
[2018-11-12] MEDS ORDERED: ONDANSETRON 4 MG/2 ML VIAL IV PRN (14:30)
[2018-11-12] MEDS: SODIUM CHLORIDE 0.9% 1,000 ML IV SCH ×2 (17:24→23:20)
[2018-11-12] MEDS: ATORVASTATIN 40 MG TABLET PO SCH (21:06)
[2018-11-12] MEDS: QUEtiapine 25 MG TABLET PO SCH (21:06)
[2018-11-12] MEDS: TAMSULOSIN 0.4 MG CAPSULE PO SCH (21:06)
[2018-11-12] MEDS: GABAPENTIN 400 MG CAPSULE PO SCH (21:07)
[2018-11-13 04:44] LABS: Apearance,Urine CLEAR (Clear); Bacteria,Urine Occasional /HPF (Few); Bilirubin,Urine Negative (Negative); Blood, Urine Negative (Negative); Glucose,Urine (UA) Negative (Negative); Hyaline Casts,Urine 3 /LPF (0-3); Ketones,Urine Negative (Negative); Mucus,Urine Occasional /LPF (Occasional); Nitrite,Urine Negative (Negative); Protein,Urine Negative; RBC,Urine 1 /HPF (0-4); Squamous Epithelial Cell,Urine Occasional /HPF (0-10); Urine Color Yellow (Yellow); Urine Specific Gravity 1.034 (1.001-1.035); Urine Urobilinogen < 2.0 EU/DL (0.2-1.0); WBC,Urine 84 /HPF (0-6)
[2018-11-13 06:10] LABS: Basophils # 0.1 10*3/uL (0.0-0.2); Basophils % 0.4 % (0.0-0.8); Eosinophils # 0.7 10*3/uL (0.0-0.87); Eosinophils % 5.7 % (0.00-10.9); Hemoglobin 9.3 GM/DL (14.0-18.0); Immature Granulocytes % 0.5 %; Immature Granulocytes Absolute 0.06 #; Lymphocytes # 1.5 10*3/uL (1.4-4.0); Lymphocytes % 13.4 % (21.2-54.2); Mean Corpuscular HGB Conc 32.1 GM/DL (32-36); Mean Corpuscular Volume 93.2 FL (87-102); Monocytes % 13.3 % (1.7-12.7); Neutrophils % 66.7 % (38.7-73.9); Platelet Count 273 T/CUMM (130-400); Red Blood Count 3.11 MC/CUMM (3.8-5.5); Red Cell Distribution Width 13.5 % (9.3-17.3); White Blood Count 11.5 T/CUMM (4-12)
[2018-11-13 06:27] LABS: Calcium 8.2 MG/DL (8.5-10.1); Osmolality,Calculated 285.1 MOS/KG (273-304); Thyroid Stimulating Hormone 0.656 uIU/ml (0.358-3.74)
[2018-11-13] MEDS: SODIUM CHLORIDE 0.9% 1,000 ML IV SCH (06:41)
[2018-11-13] MEDS: CARVEDILOL 6.25 MG TABLET PO SCH ×2 (10:07→17:28)
[2018-11-13] MEDS: FUROSEMIDE 40 MG/4 ML VIAL IV SCH (10:07)
[2018-11-13] MEDS: PANTOPRAZOLE 40 MG TABLET PO SCH (10:08)
[2018-11-13] MEDS: ESCITALOPRAM 10 MG TABLET PO SCH (10:11)
[2018-11-13] MEDS: ASPIRIN EC 81 MG TABLET PO SCH (13:47)
[2018-11-13] MEDS: ATORVASTATIN 40 MG TABLET PO SCH (21:41)
[2018-11-13] MEDS: QUEtiapine 25 MG TABLET PO SCH (21:41)
[2018-11-13] MEDS: GABAPENTIN 400 MG CAPSULE PO SCH (21:41)
[2018-11-13] MEDS: TAMSULOSIN 0.4 MG CAPSULE PO SCH (21:42)
[2018-11-14 05:33] LABS: Basophils # 0.1 10*3/uL (0.0-0.2); Basophils % 0.5 % (0.0-0.8); Eosinophils # 0.6 10*3/uL (0.0-0.87); Eosinophils % 6.4 % (0.00-10.9); Hematocrit 28.3 VOL% (42.0-52.0); Hemoglobin 9.2 GM/DL (14.0-18.0); Immature Granulocytes % 0.4 %; Immature Granulocytes Absolute 0.04 #; Lymphocytes # 1.7 10*3/uL (1.4-4.0); Lymphocytes % 17.4 % (21.2-54.2); Mean Corpuscular HGB Conc 32.5 GM/DL (32-36); Mean Corpuscular Volume 91.6 FL (87-102); Monocytes % 12.9 % (1.7-12.7); Neutrophils % 62.4 % (38.7-73.9); Platelet Count 261 T/CUMM (130-400); Red Blood Count 3.09 MC/CUMM (3.8-5.5); Red Cell Distribution Width 13.3 % (9.3-17.3); White Blood Count 9.9 T/CUMM (4-12)
[2018-11-14 06:02] LABS: Calcium 8.1 MG/DL (8.5-10.1); Osmolality,Calculated 286.8 MOS/KG (273-304)
[2018-11-14] MEDS: PANTOPRAZOLE 40 MG TABLET PO SCH (09:40)
[2018-11-14] MEDS: FUROSEMIDE 40 MG/4 ML VIAL IV SCH (09:40)
[2018-11-14] MEDS: ASPIRIN EC 81 MG TABLET PO SCH (09:40)
[2018-11-14] MEDS: ESCITALOPRAM 10 MG TABLET PO SCH (09:40)
[2018-11-14] MEDS: CARVEDILOL 6.25 MG TABLET PO SCH ×2 (09:40→16:19)
[2018-11-14 14:32] LABS: Apearance,Urine Slightly Hazy (Clear); Bacteria,Urine Occasional /HPF (Few); Bilirubin,Urine Negative (Negative); Blood, Urine Negative (Negative); Glucose,Urine (UA) Negative (Negative); Ketones,Urine Negative (Negative); Mucus,Urine Occasional /LPF (Occasional); Nitrite,Urine Negative (Negative); Protein,Urine Negative; RBC,Urine 12 /HPF (0-4); Squamous Epithelial Cell,Urine Occasional /HPF (0-10); Urine Color Straw (Yellow); Urine Specific Gravity 1.005 (1.001-1.035); Urine Urobilinogen < 2.0 EU/DL (0.2-1.0); WBC,Urine 97 /HPF (0-6)
[2018-11-14] MEDS: ATORVASTATIN 40 MG TABLET PO SCH (21:26)
[2018-11-14] MEDS: GABAPENTIN 400 MG CAPSULE PO SCH (21:26)
[2018-11-14] MEDS: TAMSULOSIN 0.4 MG CAPSULE PO SCH (21:27)
[2018-11-14] MEDS: QUEtiapine 25 MG TABLET PO SCH (21:27)
[2018-11-15 06:06] LABS: Basophils # 0.1 10*3/uL (0.0-0.2); Basophils % 0.5 % (0.0-0.8); Eosinophils # 0.7 10*3/uL (0.0-0.87); Eosinophils % 6.6 % (0.00-10.9); Hematocrit 30.2 VOL% (42.0-52.0); Hemoglobin 9.8 GM/DL (14.0-18.0); Immature Granulocytes % 0.2 %; Immature Granulocytes Absolute 0.02 #; Lymphocytes # 2.1 10*3/uL (1.4-4.0); Lymphocytes % 19.4 % (21.2-54.2); Mean Corpuscular HGB Conc 32.5 GM/DL (32-36); Mean Corpuscular Volume 89.9 FL (87-102); Mean Platelet Volume 10.1 FL (9.6-12.0); Monocytes % 11.9 % (1.7-12.7); Neutrophils % 61.4 % (38.7-73.9); Platelet Count 283 T/CUMM (130-400); Red Blood Count 3.36 MC/CUMM (3.8-5.5); Red Cell Distribution Width 13.2 % (9.3-17.3)
[2018-11-15 06:20] LABS: Calcium 8.6 MG/DL (8.5-10.1); Osmolality,Calculated 281.3 MOS/KG (273-304)
[2018-11-15] MEDS: ESCITALOPRAM 10 MG TABLET PO SCH (10:18)
[2018-11-15] MEDS: CARVEDILOL 6.25 MG TABLET PO SCH ×2 (10:18→16:30)
[2018-11-15] MEDS: PANTOPRAZOLE 40 MG TABLET PO SCH (10:18)
[2018-11-15] MEDS: ASPIRIN EC 81 MG TABLET PO SCH (10:18)
[2018-11-15] MEDS: FUROSEMIDE 40 MG/4 ML VIAL IV SCH (10:18)
[2018-11-15] MEDS: cefTRIAXone 1,000 MG in SYRINGE 1 EACH IV SCH (15:48)
[2018-11-15] MEDS: TAMSULOSIN 0.4 MG CAPSULE PO SCH (20:43)
[2018-11-15] MEDS: GABAPENTIN 400 MG CAPSULE PO SCH (20:43)
[2018-11-15] MEDS: ATORVASTATIN 40 MG TABLET PO SCH (20:43)
[2018-11-15] MEDS: ACETAMINOPHEN 325 MG TABLET PO PRN (20:43)
[2018-11-15] MEDS: QUEtiapine 25 MG TABLET PO SCH (20:43)
[2018-11-16 06:27] LABS: Basophils # 0.1 10*3/uL (0.0-0.2); Basophils % 0.7 % (0.0-0.8); Eosinophils # 0.9 10*3/uL (0.0-0.87); Eosinophils % 8.8 % (0.00-10.9); Hematocrit 30.4 VOL% (42.0-52.0); Hemoglobin 10.2 GM/DL (14.0-18.0); Immature Granulocytes % 0.5 %; Immature Granulocytes Absolute 0.05 #; Lymphocytes % 19.1 % (21.2-54.2); Mean Corpuscular HGB Conc 33.6 GM/DL (32-36); Mean Corpuscular Volume 88.6 FL (87-102); Monocytes % 13.3 % (1.7-12.7); Neutrophils % 57.6 % (38.7-73.9); Platelet Count 286 T/CUMM (130-400); Red Blood Count 3.43 MC/CUMM (3.8-5.5); Red Cell Distribution Width 13.3 % (9.3-17.3); White Blood Count 10.2 T/CUMM (4-12)
[2018-11-16 06:43] LABS: Calcium 8.4 MG/DL (8.5-10.1); Osmolality,Calculated 282.3 MOS/KG (273-304)
[2018-11-16] MEDS: ESCITALOPRAM 10 MG TABLET PO SCH (08:40)
[2018-11-16] MEDS: CARVEDILOL 6.25 MG TABLET PO SCH ×2 (08:40→16:01)
[2018-11-16] MEDS: PANTOPRAZOLE 40 MG TABLET PO SCH (08:40)
[2018-11-16] MEDS: POTASSIUM CHLORIDE 20 MEQ TABLET PO PRN ×3 (08:40→13:39)
[2018-11-16] MEDS: FUROSEMIDE 40 MG/4 ML VIAL IV SCH (08:40)
[2018-11-16] MEDS: ASPIRIN EC 81 MG TABLET PO SCH (08:40)
[2018-11-16] MEDS ORDERED: MAGNESIUM SULF RIDER 4 GM in PREMIX 1 EACH IV PRN (12:26)
[2018-11-16] MEDS ORDERED: MAGNESIUM SULF RIDER 2 GM in PREMIX 1 EACH IV PRN (12:26)
[2018-11-16] MEDS: ACETAMINOPHEN 325 MG TABLET PO PRN ×2 (13:39→21:42)
[2018-11-16] MEDS ORDERED: POTASSIUM CHLORIDE 20 MEQ TABLET PO ONE (15:27)
[2018-11-16] MEDS: cefTRIAXone 1,000 MG in SYRINGE 1 EACH IV SCH (16:01)
[2018-11-16] MEDS: ATORVASTATIN 40 MG TABLET PO SCH (20:20)
[2018-11-16] MEDS: GABAPENTIN 400 MG CAPSULE PO SCH (20:20)
[2018-11-16] MEDS: QUEtiapine 25 MG TABLET PO SCH (20:20)
[2018-11-16] MEDS: TAMSULOSIN 0.4 MG CAPSULE PO SCH (20:20)
[2018-11-17 06:02] LABS: Basophils # 0.1 10*3/uL (0.0-0.2); Basophils % 0.7 % (0.0-0.8); Eosinophils % 10.4 % (0.00-10.9); Hematocrit 30.6 VOL% (42.0-52.0); Hemoglobin 9.9 GM/DL (14.0-18.0); Immature Granulocytes % 0.4 %; Immature Granulocytes Absolute 0.04 #; Lymphocytes # 2.1 10*3/uL (1.4-4.0); Mean Corpuscular HGB Conc 32.4 GM/DL (32-36); Mean Platelet Volume 10.1 FL (9.6-12.0); Monocytes % 15.9 % (1.7-12.7); Neutrophils % 50.6 % (38.7-73.9); Platelet Count 289 T/CUMM (130-400); Red Cell Distribution Width 13.2 % (9.3-17.3); White Blood Count 9.4 T/CUMM (4-12)
[2018-11-17 06:26] LABS: Calcium 8.7 MG/DL (8.5-10.1); Osmolality,Calculated 284.1 MOS/KG (273-304)
[2018-11-17 07:12] LABS: Eosinophils 4 % (0-10); Lymphocytes 7 % (20-55); Platelet Estimate Normal; Polychromasia Slight; Segmented Neutrophils 74 % (50-85); Total Cells Counted 100
[2018-11-17] MEDS: ASPIRIN EC 81 MG TABLET PO SCH (08:28)
[2018-11-17] MEDS: PANTOPRAZOLE 40 MG TABLET PO SCH (08:28)
[2018-11-17] MEDS: ESCITALOPRAM 10 MG TABLET PO SCH (08:28)
[2018-11-17] MEDS: CARVEDILOL 6.25 MG TABLET PO SCH (08:28)
[2018-11-17] MEDS: FUROSEMIDE 40 MG/4 ML VIAL IV SCH (08:29)
[2018-11-17 09:15] VITALS: BP 147/69
== END 2018-11-17 10:50 | disposition home health service (06) ==
LOC: EDUNIT# → EDBD → N.ED 10:12 → N.EDINP 14:30 → INTOOBSV 14:30 → N.EDINP 16:00 → N.5E 16:10
PROVIDERS: ADMIT Internal Medicine; ATTEND Internal Medicine

== ENCOUNTER 2020-06-11 22:03 | Inpatient (IN) ==
[2020-06-11] MEDS ORDERED: PIPERACILLIN/TAZOBACTAM 3.375 MG in SODIUM CHLORIDE 0.9% 100 ML IV STA (23:11)
[2020-06-11] MEDS ORDERED: PIPERACILLIN/TAZOBACTAM 2.25 MG in SODIUM CHLORIDE 0.9% 100 ML IV SCH (23:30)
[2020-06-11] MEDS ORDERED: DEXTROSE 5% NACL 0.45% 1,000 ML IV SCH (23:30)
[2020-06-11] MEDS ORDERED: PIPERACILLIN/TAZOBACTAM 2.25 MG in SODIUM CHLORIDE 0.9% 100 ML IV ONE (23:30)
[2020-06-12] MEDS: PIPERACILLIN/TAZOBACTAM 3,375 MG in SODIUM CHLORIDE 0.9% 100 ML IV SCH ×3 (02:45→18:34)
[2020-06-12 06:23] LABS: Basophils % 0.1 % (0.0-0.8); Hematocrit 35.5 VOL% (42.0-52.0); Hemoglobin 11.7 GM/DL (14.0-18.0); Immature Granulocytes % 0.6 %; Immature Granulocytes Absolute 0.12 #; Lymphocytes # 1.1 10*3/uL (1.4-4.0); Lymphocytes % 5.5 % (21.2-54.2); Mean Corpuscular Volume 91.5 FL (87-102); Mean Platelet Volume 10.6 FL (9.6-12.0); Monocytes % 8.3 % (1.7-12.7); Neutrophils % 85.5 % (38.7-73.9); Platelet Count 180 T/CUMM (130-400); Red Blood Count 3.88 MC/CUMM (3.8-5.5); Red Cell Distribution Width 14.7 % (9.3-17.3); White Blood Count 20.4 T/CUMM (4-12)
[2020-06-12 06:37] LABS: Albumin 3.3 G/DL (3.4-5.0); Bilirubin,Total 1.9 MG/DL (0.2-1.0); Potassium 3.6 MMOL/L (3.5-5.1); Total Protein 6.8 G/DL (6.4-8.2)
[2020-06-12 06:59] LABS: Band Neutrophils 8 % (0-10); Eosinophils 1 % (0-10); Lymphocytes 4 % (20-55); Microcytosis 1+; Segmented Neutrophils 78 % (50-85); Total Cells Counted 100
[2020-06-12 07:00] LABS: Ovalocytes Slight; Platelet Estimate Adequate
[2020-06-12] MEDS: PANTOPRAZOLE 40 MG VIAL IV SCH (08:54)
[2020-06-12] MEDS: LACTATED RINGERS 1,000 ML IV SCH ×2 (11:39→17:31)
[2020-06-12] MEDS: ZINC OXIDE PASTE 113 GM TUBE TOP SCH ×2 (15:56→22:00)
[2020-06-12] MEDS: HYDROmorphone 2 MG/1 ML VIAL IV PRN (17:24)
[2020-06-13] MEDS: LACTATED RINGERS 1,000 ML IV SCH ×3 (03:00→18:30)
[2020-06-13] MEDS: PIPERACILLIN/TAZOBACTAM 3,375 MG in SODIUM CHLORIDE 0.9% 100 ML IV SCH ×3 (03:01→18:30)
[2020-06-13] MEDS: ZINC OXIDE PASTE 113 GM TUBE TOP SCH ×2 (09:59→20:49)
[2020-06-13] MEDS: PANTOPRAZOLE 40 MG VIAL IV SCH (09:59)
[2020-06-13] MEDS: HYDROmorphone 2 MG/1 ML VIAL IV PRN (20:48)
[2020-06-13] MEDS: ONDANSETRON 4 MG/2 ML VIAL IV PRN (20:49)
[2020-06-14] MEDS: LACTATED RINGERS 1,000 ML IV SCH ×3 (02:15→20:14)
[2020-06-14] MEDS: PIPERACILLIN/TAZOBACTAM 3,375 MG in SODIUM CHLORIDE 0.9% 100 ML IV SCH ×3 (03:49→20:13)
[2020-06-14 06:31] LABS: Basophils % 0.1 % (0.0-0.8); Hematocrit 31.4 VOL% (42.0-52.0); Hemoglobin 10.5 GM/DL (14.0-18.0); Immature Granulocytes % 1.9 %; Lymphocytes % 4.9 % (21.2-54.2); Mean Corpuscular HGB Conc 33.4 GM/DL (32-36); Mean Corpuscular Volume 92.1 FL (87-102); Mean Platelet Volume 10.8 FL (9.6-12.0); Monocytes % 8.7 % (1.7-12.7); Neutrophils % 84.4 % (38.7-73.9); Platelet Count 159 T/CUMM (130-400); Red Blood Count 3.41 MC/CUMM (3.8-5.5); Red Cell Distribution Width 14.6 % (9.3-17.3); White Blood Count 20.7 T/CUMM (4-12)
[2020-06-14 06:57] LABS: Calcium 9.1 MG/DL (8.5-10.1); Potassium 3.3 MMOL/L (3.5-5.1)
[2020-06-14 07:19] LABS: Hypochromasia 1+; Lymphocytes 4 % (20-55); Metamyelocytes 1 %; Segmented Neutrophils 90 % (50-85); Total Cells Counted 100
[2020-06-14 07:20] LABS: Atypical Lymphocytes Few; Platelet Estimate Decreased; Reactive Lymphocytes Few
[2020-06-14] MEDS: PANTOPRAZOLE 40 MG VIAL IV SCH (08:56)
[2020-06-14] MEDS: ZINC OXIDE PASTE 113 GM TUBE TOP SCH ×2 (11:43→20:15)
[2020-06-14] MEDS: ONDANSETRON 4 MG/2 ML VIAL IV PRN (20:12)
[2020-06-14] MEDS: HYDROmorphone 2 MG/1 ML VIAL IV PRN (20:12)
[2020-06-15] MEDS: LACTATED RINGERS 1,000 ML IV SCH ×2 (04:07→19:01)
[2020-06-15] MEDS: PIPERACILLIN/TAZOBACTAM 3,375 MG in SODIUM CHLORIDE 0.9% 100 ML IV SCH ×3 (04:07→19:01)
[2020-06-15 07:24] LABS: Basophils % 0.1 % (0.0-0.8); Eosinophils % 0.1 % (0.00-10.9); Hematocrit 33.3 VOL% (42.0-52.0); Hemoglobin 10.8 GM/DL (14.0-18.0); Immature Granulocytes % 1.2 %; Mean Corpuscular HGB Conc 32.4 GM/DL (32-36); Mean Corpuscular Volume 94.3 FL (87-102); Mean Platelet Volume 10.4 FL (9.6-12.0); Monocytes % 7.9 % (1.7-12.7); Neutrophils % 84.7 % (38.7-73.9); Platelet Count 186 T/CUMM (130-400); Red Blood Count 3.53 MC/CUMM (3.8-5.5); Red Cell Distribution Width 14.3 % (9.3-17.3); White Blood Count 17.4 T/CUMM (4-12)
[2020-06-15 07:42] LABS: Osmolality,Calculated 306.3 MOS/KG (273-304)
[2020-06-15] MEDS: HYDROmorphone 2 MG/1 ML VIAL IV PRN ×2 (08:49→22:00)
[2020-06-15] MEDS: ONDANSETRON 4 MG/2 ML VIAL IV PRN (08:49)
[2020-06-15] MEDS: POTASSIUM CHLORIDE RIDER 10 MEQ in PREMIX 1 EACH IV PRN ×5 (08:50→23:52)
[2020-06-15] MEDS: PANTOPRAZOLE 40 MG VIAL IV SCH (08:50)
[2020-06-15] MEDS: ZINC OXIDE PASTE 113 GM TUBE TOP SCH ×2 (08:52→20:15)
[2020-06-15] MEDS ORDERED: NITROGLYCERIN SL 0.4 MG TABLET SL PRN (14:59)
[2020-06-15] MEDS: carvediloL 3.125 MG TABLET PO SCH (20:15)
[2020-06-15] MEDS: QUEtiapine 25 MG TABLET PO SCH (20:15)
[2020-06-15] MEDS: GABAPENTIN 400 MG CAPSULE PO SCH (20:15)
[2020-06-16] MEDS: POTASSIUM CHLORIDE RIDER 10 MEQ in PREMIX 1 EACH IV PRN ×3 (00:59→03:17)
[2020-06-16] MEDS: PIPERACILLIN/TAZOBACTAM 3,375 MG in SODIUM CHLORIDE 0.9% 100 ML IV SCH ×2 (03:56→11:13)
[2020-06-16 05:23] LABS: Basophils % 0.1 % (0.0-0.8); Eosinophils # 0.3 10*3/uL (0.0-0.87); Eosinophils % 1.7 % (0.00-10.9); Hematocrit 33.2 VOL% (42.0-52.0); Hemoglobin 10.6 GM/DL (14.0-18.0); Immature Granulocytes % 0.6 %; Immature Granulocytes Absolute 0.12 #; Lymphocytes % 5.5 % (21.2-54.2); Mean Corpuscular HGB Conc 31.9 GM/DL (32-36); Mean Corpuscular Volume 94.6 FL (87-102); Mean Platelet Volume 10.7 FL (9.6-12.0); Monocytes % 10.1 % (1.7-12.7); Platelet Count 190 T/CUMM (130-400); Red Blood Count 3.51 MC/CUMM (3.8-5.5); Red Cell Distribution Width 14.3 % (9.3-17.3); White Blood Count 18.8 T/CUMM (4-12)
[2020-06-16 05:36] LABS: Osmolality,Calculated 305.1 MOS/KG (273-304); Potassium 4.2 MMOL/L (3.5-5.1)
[2020-06-16] MEDS: LACTATED RINGERS 1,000 ML IV SCH ×4 (07:10→16:41)
[2020-06-16] MEDS: ASPIRIN EC 81 MG TABLET PO SCH (08:57)
[2020-06-16] MEDS: ZINC OXIDE PASTE 113 GM TUBE TOP SCH ×2 (08:57→21:22)
[2020-06-16] MEDS: carvediloL 3.125 MG TABLET PO SCH ×2 (08:57→21:21)
[2020-06-16] MEDS: PANTOPRAZOLE 40 MG VIAL IV SCH (08:58)
[2020-06-16] MEDS: HYDROmorphone 2 MG/1 ML VIAL IV PRN (11:14)
[2020-06-16] MEDS: ONDANSETRON 4 MG/2 ML VIAL IV PRN (11:15)
[2020-06-16] MEDS ORDERED: fentaNYL 100 MCG/2 ML VIAL ONE (12:51)
[2020-06-16] MEDS ORDERED: LACTATED RINGERS 1,000 ML IV SCH (13:30)
[2020-06-16] MEDS ORDERED: SUCCINYLCHOLINE 200 MG/10 ML VIAL ONE (14:03)
[2020-06-16] MEDS ORDERED: PHENYLEPHRINE 1 MG/10 ML SYRINGE IV ONE ×2 (14:03→14:46)
[2020-06-16] MEDS ORDERED: ONDANSETRON 4 MG/2 ML VIAL ONE (14:03)
[2020-06-16] MEDS ORDERED: propofoL 200 MG/20 ML VIAL IV ONE (14:03)
[2020-06-16] MEDS ORDERED: SEVOFLURANE 1 UNIT/15 MINUTE INH ONE ×6 (14:03→14:53)
[2020-06-16] MEDS ORDERED: ETOMIDATE 40 MG/20 ML VIAL IV ONE (14:03)
[2020-06-16] MEDS ORDERED: SODIUM CHLORIDE 0.9% 1,000 ML IV ONE (14:03)
[2020-06-16] MEDS ORDERED: ROCURONIUM 50 MG/5 ML VIAL IV ONE (14:03)
[2020-06-16] MEDS ORDERED: LIDOCAINE 2% 5 ML VIAL ONE (14:03)
[2020-06-16] MEDS ORDERED: SUGAMMADEX 200 MG/2 ML VIAL IV ONE (14:43)
[2020-06-16] MEDS ORDERED: HYDROmorphone 2 MG/1 ML VIAL IV PRN ×2 (15:32→15:46)
[2020-06-16] MEDS ORDERED: ONDANSETRON 4 MG/2 ML VIAL IV PRN (15:46)
[2020-06-16 16:11] LABS: Basophils % 0.2 % (0.0-0.8); Eosinophils # 0.2 10*3/uL (0.0-0.87); Eosinophils % 1.4 % (0.00-10.9); Hematocrit 38.1 VOL% (42.0-52.0); Hemoglobin 12.3 GM/DL (14.0-18.0); Immature Granulocytes % 0.9 %; Immature Granulocytes Absolute 0.14 #; Lymphocytes # 1.4 10*3/uL (1.4-4.0); Lymphocytes % 8.9 % (21.2-54.2); Mean Corpuscular HGB Conc 32.3 GM/DL (32-36); Mean Corpuscular Volume 95.3 FL (87-102); Mean Platelet Volume 10.2 FL (9.6-12.0); Monocytes % 6.6 % (1.7-12.7); Platelet Count 250 T/CUMM (130-400); Red Cell Distribution Width 14.2 % (9.3-17.3); White Blood Count 15.5 T/CUMM (4-12)
[2020-06-16] MEDS: KETOROLAC 15 MG/1 ML VIAL IV SCH ×2 (16:30→21:26)
[2020-06-16 16:34] LABS: Calcium 8.3 MG/DL (8.5-10.1); Potassium 4.1 MMOL/L (3.5-5.1)
[2020-06-16] MEDS: GABAPENTIN 400 MG CAPSULE PO SCH (21:21)
[2020-06-16] MEDS: QUEtiapine 25 MG TABLET PO SCH (21:21)
[2020-06-17] MEDS: KETOROLAC 15 MG/1 ML VIAL IV SCH ×4 (02:38→21:44)
[2020-06-17] MEDS: LACTATED RINGERS 1,000 ML IV SCH (04:00)
[2020-06-17 06:11] LABS: Basophils % 0.1 % (0.0-0.8); Eosinophils # 0.1 10*3/uL (0.0-0.87); Eosinophils % 0.5 % (0.00-10.9); Hematocrit 37.5 VOL% (42.0-52.0); Hemoglobin 11.5 GM/DL (14.0-18.0); Immature Granulocytes Absolute 0.16 #; Lymphocytes # 1.2 10*3/uL (1.4-4.0); Lymphocytes % 7.4 % (21.2-54.2); Mean Corpuscular HGB Conc 30.7 GM/DL (32-36); Mean Corpuscular Volume 101.4 FL (87-102); Mean Platelet Volume 10.5 FL (9.6-12.0); Monocytes % 7.4 % (1.7-12.7); Neutrophils % 83.6 % (38.7-73.9); Platelet Count 150 T/CUMM (130-400); Red Cell Distribution Width 14.2 % (9.3-17.3); White Blood Count 16.1 T/CUMM (4-12)
[2020-06-17 06:22] LABS: Calcium 8.2 MG/DL (8.5-10.1)
[2020-06-17] MEDS: carvediloL 3.125 MG TABLET PO SCH ×2 (09:39→21:44)
[2020-06-17] MEDS: ZINC OXIDE PASTE 113 GM TUBE TOP SCH ×2 (09:39→21:44)
[2020-06-17] MEDS: DEXT 5% NACL 0.45% KCL 40 MEQ 40 MEQ/1,000 ML BAG IV SCH ×2 (09:39→17:11)
[2020-06-17] MEDS: PANTOPRAZOLE 40 MG VIAL IV SCH (09:39)
[2020-06-17] MEDS: ENOXAPARIN 40 MG/0.4 ML SYRINGE SUBCUT SCH (09:39)
[2020-06-17] MEDS: ASPIRIN EC 81 MG TABLET PO SCH (09:39)
[2020-06-17] MEDS: GABAPENTIN 400 MG CAPSULE PO SCH (21:44)
[2020-06-17] MEDS: QUEtiapine 25 MG TABLET PO SCH (21:44)
[2020-06-18] MEDS: DEXT 5% NACL 0.45% KCL 40 MEQ 40 MEQ/1,000 ML BAG IV SCH ×3 (01:16→16:56)
[2020-06-18] MEDS: KETOROLAC 15 MG/1 ML VIAL IV SCH ×4 (03:28→20:37)
[2020-06-18 05:55] LABS: Basophils % 0.2 % (0.0-0.8); Eosinophils # 0.7 10*3/uL (0.0-0.87); Eosinophils % 5.9 % (0.00-10.9); Hemoglobin 8.7 GM/DL (14.0-18.0); Immature Granulocytes % 1.7 %; Lymphocytes # 1.2 10*3/uL (1.4-4.0); Lymphocytes % 10.3 % (21.2-54.2); Mean Corpuscular HGB Conc 32.2 GM/DL (32-36); Mean Corpuscular Volume 96.4 FL (87-102); Mean Platelet Volume 10.9 FL (9.6-12.0); Monocytes % 9.8 % (1.7-12.7); Neutrophils % 72.1 % (38.7-73.9); Platelet Count 154 T/CUMM (130-400); Red Cell Distribution Width 14.2 % (9.3-17.3)
[2020-06-18 06:25] LABS: Calcium 8.1 MG/DL (8.5-10.1); Osmolality,Calculated 310.1 MOS/KG (273-304); Potassium 4.4 MMOL/L (3.5-5.1)
[2020-06-18] MEDS: PANTOPRAZOLE 40 MG VIAL IV SCH (08:43)
[2020-06-18] MEDS: ASPIRIN EC 81 MG TABLET PO SCH (08:43)
[2020-06-18] MEDS: carvediloL 3.125 MG TABLET PO SCH ×2 (08:43→20:37)
[2020-06-18] MEDS: ZINC OXIDE PASTE 113 GM TUBE TOP SCH ×2 (08:44→20:37)
[2020-06-18] MEDS: ENOXAPARIN 40 MG/0.4 ML SYRINGE SUBCUT SCH (08:44)
[2020-06-18 12:30] LABS: Hematocrit 27.9 VOL% (42.0-52.0); Hemoglobin 8.8 GM/DL (14.0-18.0)
[2020-06-18] MEDS: GABAPENTIN 400 MG CAPSULE PO SCH (20:36)
[2020-06-18] MEDS: QUEtiapine 25 MG TABLET PO SCH (20:36)
[2020-06-19] MEDS: DEXT 5% NACL 0.45% KCL 40 MEQ 40 MEQ/1,000 ML BAG IV SCH ×3 (00:11→23:02)
[2020-06-19] MEDS: KETOROLAC 15 MG/1 ML VIAL IV SCH ×4 (03:26→20:44)
[2020-06-19 05:37] LABS: Basophils % 0.3 % (0.0-0.8); Eosinophils # 0.6 10*3/uL (0.0-0.87); Hematocrit 26.7 VOL% (42.0-52.0); Hemoglobin 8.5 GM/DL (14.0-18.0); Immature Granulocytes % 2.5 %; Immature Granulocytes Absolute 0.28 #; Lymphocytes # 1.1 10*3/uL (1.4-4.0); Lymphocytes % 9.3 % (21.2-54.2); Mean Corpuscular HGB Conc 31.8 GM/DL (32-36); Mean Corpuscular Volume 96.4 FL (87-102); Mean Platelet Volume 10.6 FL (9.6-12.0); Neutrophils % 73.9 % (38.7-73.9); Platelet Count 157 T/CUMM (130-400); Red Blood Count 2.77 MC/CUMM (3.8-5.5); Red Cell Distribution Width 14.2 % (9.3-17.3); White Blood Count 11.3 T/CUMM (4-12)
[2020-06-19 06:12] LABS: Calcium 7.7 MG/DL (8.5-10.1); Osmolality,Calculated 297.7 MOS/KG (273-304)
[2020-06-19] MEDS: carvediloL 3.125 MG TABLET PO SCH ×2 (09:44→20:43)
[2020-06-19] MEDS: ASPIRIN EC 81 MG TABLET PO SCH (09:45)
[2020-06-19] MEDS: ZINC OXIDE PASTE 113 GM TUBE TOP SCH ×2 (09:45→20:44)
[2020-06-19] MEDS: ENOXAPARIN 40 MG/0.4 ML SYRINGE SUBCUT SCH (09:46)
[2020-06-19] MEDS: PANTOPRAZOLE 40 MG VIAL IV SCH (09:51)
[2020-06-19] MEDS ORDERED: DOCUSATE SODIUM 100 MG CAPSULE PO PRN (11:12)
[2020-06-19] MEDS: POLYETHYLENE GLYCOL POWDER 17 GM PACK PO SCH (11:25)
[2020-06-19] MEDS: GABAPENTIN 400 MG CAPSULE PO SCH (20:43)
[2020-06-19] MEDS: QUEtiapine 25 MG TABLET PO SCH (20:43)
[2020-06-19] MEDS: ACETAMINOPHEN 325 MG TABLET PO PRN (22:55)
[2020-06-20] MEDS: KETOROLAC 15 MG/1 ML VIAL IV SCH ×4 (04:31→20:45)
[2020-06-20 06:11] LABS: Calcium 7.4 MG/DL (8.5-10.1); Osmolality,Calculated 291.8 MOS/KG (273-304); Potassium 5.2 MMOL/L (3.5-5.1)
[2020-06-20] MEDS: ENOXAPARIN 40 MG/0.4 ML SYRINGE SUBCUT SCH (09:36)
[2020-06-20] MEDS: DEXTROSE 5% NACL 0.45% 1,000 ML IV SCH (09:37)
[2020-06-20] MEDS: ASPIRIN EC 81 MG TABLET PO SCH (09:37)
[2020-06-20] MEDS: POLYETHYLENE GLYCOL POWDER 17 GM PACK PO SCH (09:37)
[2020-06-20] MEDS: ZINC OXIDE PASTE 113 GM TUBE TOP SCH ×2 (09:38→20:46)
[2020-06-20] MEDS: PANTOPRAZOLE 40 MG VIAL IV SCH (09:45)
[2020-06-20] MEDS: carvediloL 3.125 MG TABLET PO SCH ×2 (10:14→20:45)
[2020-06-20] MEDS: QUEtiapine 25 MG TABLET PO SCH (20:45)
[2020-06-20] MEDS: GABAPENTIN 400 MG CAPSULE PO SCH (20:45)
[2020-06-21] MEDS: DEXTROSE 5% NACL 0.45% 1,000 ML IV SCH (00:51)
[2020-06-21] MEDS: KETOROLAC 15 MG/1 ML VIAL IV SCH ×2 (03:11→09:33)
[2020-06-21] MEDS: ACETAMINOPHEN 325 MG TABLET PO PRN ×2 (09:28→16:19)
[2020-06-21] MEDS: carvediloL 3.125 MG TABLET PO SCH ×2 (09:28→20:33)
[2020-06-21] MEDS: ASPIRIN EC 81 MG TABLET PO SCH (09:28)
[2020-06-21] MEDS: ZINC OXIDE PASTE 113 GM TUBE TOP SCH ×2 (09:30→20:33)
[2020-06-21] MEDS: ENOXAPARIN 40 MG/0.4 ML SYRINGE SUBCUT SCH (09:30)
[2020-06-21] MEDS: POLYETHYLENE GLYCOL POWDER 17 GM PACK PO SCH (09:33)
[2020-06-21] MEDS: PANTOPRAZOLE 40 MG VIAL IV SCH (09:36)
[2020-06-21] MEDS: GABAPENTIN 400 MG CAPSULE PO SCH (20:33)
[2020-06-21] MEDS: QUEtiapine 25 MG TABLET PO SCH (20:33)
[2020-06-22] MEDS: PANTOPRAZOLE 40 MG VIAL IV SCH (09:08)
[2020-06-22] MEDS: ASPIRIN EC 81 MG TABLET PO SCH (09:09)
[2020-06-22] MEDS: ENOXAPARIN 40 MG/0.4 ML SYRINGE SUBCUT SCH (09:09)
[2020-06-22] MEDS: ZINC OXIDE PASTE 113 GM TUBE TOP SCH ×2 (09:09→21:24)
[2020-06-22] MEDS: POLYETHYLENE GLYCOL POWDER 17 GM PACK PO SCH (09:09)
[2020-06-22] MEDS: carvediloL 3.125 MG TABLET PO SCH ×2 (09:09→21:20)
[2020-06-22] MEDS: GABAPENTIN 400 MG CAPSULE PO SCH (21:20)
[2020-06-22] MEDS: QUEtiapine 25 MG TABLET PO SCH (21:20)
[2020-06-23 06:17] LABS: Basophils % 0.2 % (0.0-0.8); Eosinophils # 0.6 10*3/uL (0.0-0.87); Eosinophils % 2.6 % (0.00-10.9); Hematocrit 26.3 VOL% (42.0-52.0); Hemoglobin 8.6 GM/DL (14.0-18.0); Immature Granulocytes % 1.3 %; Immature Granulocytes Absolute 0.28 #; Lymphocytes # 1.1 10*3/uL (1.4-4.0); Lymphocytes % 4.9 % (21.2-54.2); Mean Corpuscular HGB Conc 32.7 GM/DL (32-36); Mean Corpuscular Volume 93.3 FL (87-102); Mean Platelet Volume 11.7 FL (9.6-12.0); Monocytes % 5.8 % (1.7-12.7); Neutrophils % 85.2 % (38.7-73.9); Platelet Count 175 T/CUMM (130-400); Red Blood Count 2.82 MC/CUMM (3.8-5.5); Red Cell Distribution Width 13.6 % (9.3-17.3); White Blood Count 21.7 T/CUMM (4-12)
[2020-06-23 06:35] LABS: Acanthocytes Few; Eosinophils 2 % (0-10); Hypochromasia 1+; Lymphocytes 4 % (20-55); Microcytosis 1+; Segmented Neutrophils 89 % (50-85); Total Cells Counted 100
[2020-06-23 06:36] LABS: Burr Cells Slight; Calcium 7.9 MG/DL (8.5-10.1); Osmolality,Calculated 279.7 MOS/KG (273-304); Potassium 4.3 MMOL/L (3.5-5.1)
[2020-06-23] MEDS: carvediloL 3.125 MG TABLET PO SCH ×2 (09:17→20:25)
[2020-06-23] MEDS: ASPIRIN EC 81 MG TABLET PO SCH (09:17)
[2020-06-23] MEDS: ENOXAPARIN 40 MG/0.4 ML SYRINGE SUBCUT SCH (09:17)
[2020-06-23] MEDS: POLYETHYLENE GLYCOL POWDER 17 GM PACK PO SCH (09:18)
[2020-06-23] MEDS: ZINC OXIDE PASTE 113 GM TUBE TOP SCH ×2 (09:18→20:25)
[2020-06-23] MEDS: PANTOPRAZOLE 40 MG VIAL IV SCH (09:18)
[2020-06-23 16:30] LABS: Bilirubin,Urine Negative (Negative); Blood, Urine Negative (Negative); Glucose,Urine (UA) Negative (Negative); Hyaline Casts,Urine 5 /LPF (0-3); Ketones,Urine Negative (Negative); Mucus,Urine Few /LPF (Occasional); Nitrite,Urine Negative (Negative); Protein,Urine Negative; RBC,Urine <1 /HPF (0-4); Squamous Epithelial Cell,Urine Occasional /HPF (0-10); Urine Appearance CLEAR (Clear); Urine Color Yellow (Yellow); Urine Specific Gravity 1.018 (1.001-1.035); Urine Urobilinogen < 2.0 EU/DL (0.2-1.0); WBC,Urine 1 /HPF (0-6)
[2020-06-23] MEDS: GABAPENTIN 400 MG CAPSULE PO SCH (20:24)
[2020-06-23] MEDS: QUEtiapine 25 MG TABLET PO SCH (20:25)
[2020-06-24 05:34] LABS: Basophils % 0.2 % (0.0-0.8); Eosinophils # 0.4 10*3/uL (0.0-0.87); Eosinophils % 2.6 % (0.00-10.9); Hematocrit 25.3 VOL% (42.0-52.0); Hemoglobin 8.5 GM/DL (14.0-18.0); Immature Granulocytes % 1.1 %; Immature Granulocytes Absolute 0.18 #; Lymphocytes # 0.9 10*3/uL (1.4-4.0); Lymphocytes % 5.5 % (21.2-54.2); Mean Corpuscular HGB Conc 33.6 GM/DL (32-36); Mean Corpuscular Volume 92.7 FL (87-102); Mean Platelet Volume 9.7 FL (9.6-12.0); Monocytes % 7.3 % (1.7-12.7); Neutrophils % 83.3 % (38.7-73.9); Platelet Count 317 T/CUMM (130-400); Red Blood Count 2.73 MC/CUMM (3.8-5.5); Red Cell Distribution Width 13.7 % (9.3-17.3); White Blood Count 16.9 T/CUMM (4-12)
[2020-06-24 05:57] LABS: Albumin 1.3 G/DL (3.4-5.0); Bilirubin,Total 0.7 MG/DL (0.2-1.0); Calcium 7.8 MG/DL (8.5-10.1); Osmolality,Calculated 279.7 MOS/KG (273-304); Potassium 4.1 MMOL/L (3.5-5.1); Total Protein 4.8 G/DL (6.4-8.2)
[2020-06-24] MEDS: ZINC OXIDE PASTE 113 GM TUBE TOP SCH ×2 (10:02→20:57)
[2020-06-24] MEDS: carvediloL 3.125 MG TABLET PO SCH ×2 (10:03→20:57)
[2020-06-24] MEDS: ENOXAPARIN 40 MG/0.4 ML SYRINGE SUBCUT SCH (10:03)
[2020-06-24] MEDS: POLYETHYLENE GLYCOL POWDER 17 GM PACK PO SCH (10:03)
[2020-06-24] MEDS: ASPIRIN EC 81 MG TABLET PO SCH (10:03)
[2020-06-24] MEDS: PANTOPRAZOLE 40 MG VIAL IV SCH (10:08)
[2020-06-24] MEDS: ACETAMINOPHEN 325 MG TABLET PO PRN (16:05)
[2020-06-24] MEDS: QUEtiapine 25 MG TABLET PO SCH (20:57)
[2020-06-24] MEDS: GABAPENTIN 400 MG CAPSULE PO SCH (20:57)
[2020-06-25 07:50] LABS: Basophils # 0.1 10*3/uL (0.0-0.2); Basophils % 0.2 % (0.0-0.8); Eosinophils % 0.1 % (0.00-10.9); Hematocrit 29.5 VOL% (42.0-52.0); Hemoglobin 9.7 GM/DL (14.0-18.0); Immature Granulocytes % 1.1 %; Immature Granulocytes Absolute 0.42 #; Lymphocytes # 0.8 10*3/uL (1.4-4.0); Lymphocytes % 2.1 % (21.2-54.2); Mean Corpuscular HGB Conc 32.9 GM/DL (32-36); Mean Corpuscular Volume 93.1 FL (87-102); Mean Platelet Volume 9.4 FL (9.6-12.0); Monocytes % 1.9 % (1.7-12.7); Neutrophils % 94.6 % (38.7-73.9); Platelet Count 408 T/CUMM (130-400); Red Blood Count 3.17 MC/CUMM (3.8-5.5); Red Cell Distribution Width 13.5 % (9.3-17.3); White Blood Count 37.8 T/CUMM (4-12)
[2020-06-25 08:09] LABS: Albumin 1.3 G/DL (3.4-5.0); Bilirubin,Total 0.9 MG/DL (0.2-1.0); Calcium 7.9 MG/DL (8.5-10.1); Osmolality,Calculated 281.7 MOS/KG (273-304); Potassium 4.5 MMOL/L (3.5-5.1); Total Protein 5.1 G/DL (6.4-8.2)
[2020-06-25 08:18] LABS: Band Neutrophils 1 % (0-10); Lymphocytes 2 % (20-55); Segmented Neutrophils 95 % (50-85); Total Cells Counted 100
[2020-06-25 08:19] LABS: Hypochromasia 1+; Microcytosis 1+
[2020-06-25 08:20] LABS: Burr Cells Slight; Platelet Estimate Normal
[2020-06-25] MEDS: ASPIRIN EC 81 MG TABLET PO SCH (10:11)
[2020-06-25] MEDS: POLYETHYLENE GLYCOL POWDER 17 GM PACK PO SCH (10:11)
[2020-06-25] MEDS: carvediloL 3.125 MG TABLET PO SCH ×2 (10:11→21:01)
[2020-06-25] MEDS: PANTOPRAZOLE 40 MG TABLET PO SCH (10:11)
[2020-06-25] MEDS: ZINC OXIDE PASTE 113 GM TUBE TOP SCH ×2 (10:11→21:01)
[2020-06-25] MEDS: ENOXAPARIN 40 MG/0.4 ML SYRINGE SUBCUT SCH (10:12)
[2020-06-25] MEDS: metroNIDAZOLE INJ 500 MG in PREMIX 1 EACH IV SCH ×2 (17:19→23:09)
[2020-06-25] MEDS: QUEtiapine 25 MG TABLET PO SCH (21:01)
[2020-06-25] MEDS: GABAPENTIN 400 MG CAPSULE PO SCH (21:01)
[2020-06-26 05:07] LABS: Basophils # 0.1 10*3/uL (0.0-0.2); Basophils % 0.2 % (0.0-0.8); Eosinophils % 0.1 % (0.00-10.9); Hematocrit 24.1 VOL% (42.0-52.0); Immature Granulocytes % 0.9 %; Immature Granulocytes Absolute 0.28 #; Lymphocytes # 0.6 10*3/uL (1.4-4.0); Mean Corpuscular HGB Conc 33.2 GM/DL (32-36); Mean Corpuscular Volume 92.7 FL (87-102); Mean Platelet Volume 9.3 FL (9.6-12.0); Monocytes % 2.9 % (1.7-12.7); Neutrophils % 93.9 % (38.7-73.9); Platelet Count 360 T/CUMM (130-400); Red Cell Distribution Width 13.7 % (9.3-17.3); White Blood Count 31.8 T/CUMM (4-12)
[2020-06-26] MEDS: metroNIDAZOLE INJ 500 MG in PREMIX 1 EACH IV SCH ×4 (05:15→23:11)
[2020-06-26 05:30] LABS: Band Neutrophils 6 % (0-10); Hypochromasia 1+; Lymphocytes 1 % (20-55); Microcytosis 1+; Segmented Neutrophils 93 % (50-85); Total Cells Counted 100
[2020-06-26 05:31] LABS: Acanthocytes Few; Ovalocytes Slight
[2020-06-26 05:33] LABS: Giant Platelets Few
[2020-06-26 05:44] LABS: Alanine Aminotransferase < 9 U/L (16-61); Albumin 1.2 G/DL (3.4-5.0); Alkaline Phosphatase 84 U/L (45-117); Aspartate Amino Transferase 13 U/L (0-37); Blood Urea Nitrogen 36 MG/DL (7-18); Calcium 8.1 MG/DL (8.5-10.1); Carbon Dioxide 21 MMOL/L (21-32); Estimated Glom Filtration Rate 42 ML/MIN; Glucose 118 MG/DL (74-106); Osmolality,Calculated 283.7 MOS/KG (273-304); Potassium 4.3 MMOL/L (3.5-5.1); Sodium 138 MMOL/L (136-145); Total Protein 4.9 G/DL (6.4-8.2)
[2020-06-26] MEDS: ENOXAPARIN 40 MG/0.4 ML SYRINGE SUBCUT SCH (08:49)
[2020-06-26] MEDS: ZINC OXIDE PASTE 113 GM TUBE TOP SCH ×2 (08:49→20:23)
[2020-06-26] MEDS: carvediloL 3.125 MG TABLET PO SCH ×2 (08:50→20:23)
[2020-06-26] MEDS: ASPIRIN EC 81 MG TABLET PO SCH (08:50)
[2020-06-26] MEDS: PANTOPRAZOLE 40 MG TABLET PO SCH (08:51)
[2020-06-26] MEDS: POLYETHYLENE GLYCOL POWDER 17 GM PACK PO SCH (08:52)
[2020-06-26] MEDS: DEXT 5% NACL 0.45% KCL 20 MEQ 20 MEQ/1,000 ML BAG IV SCH ×3 (09:39→23:13)
[2020-06-26] MEDS: ALBUTEROL/IPRATROPIUM 3 ML NEB RESP TX SCH (19:42)
[2020-06-26] MEDS: QUEtiapine 25 MG TABLET PO SCH (20:23)
[2020-06-26] MEDS: GABAPENTIN 400 MG CAPSULE PO SCH (20:24)
[2020-06-27] MEDS: DEXT 5% NACL 0.45% KCL 20 MEQ 20 MEQ/1,000 ML BAG IV SCH ×2 (04:00→14:27)
[2020-06-27] MEDS: metroNIDAZOLE INJ 500 MG in PREMIX 1 EACH IV SCH ×4 (05:12→22:13)
[2020-06-27 06:07] LABS: Basophils % 0.1 % (0.0-0.8); Eosinophils # 0.2 10*3/uL (0.0-0.87); Eosinophils % 1.1 % (0.00-10.9); Hemoglobin 7.6 GM/DL (14.0-18.0); Immature Granulocytes % 1.3 %; Immature Granulocytes Absolute 0.21 #; Lymphocytes # 0.5 10*3/uL (1.4-4.0); Lymphocytes % 2.9 % (21.2-54.2); Mean Corpuscular HGB Conc 31.7 GM/DL (32-36); Mean Corpuscular Volume 94.1 FL (87-102); Mean Platelet Volume 9.6 FL (9.6-12.0); Monocytes % 3.2 % (1.7-12.7); Neutrophils % 91.4 % (38.7-73.9); Platelet Count 305 T/CUMM (130-400); Red Blood Count 2.55 MC/CUMM (3.8-5.5); Red Cell Distribution Width 13.9 % (9.3-17.3); White Blood Count 16.4 T/CUMM (4-12)
[2020-06-27 06:34] LABS: Alanine Aminotransferase < 9 U/L (16-61); Albumin 1.2 G/DL (3.4-5.0); Alkaline Phosphatase 75 U/L (45-117); Aspartate Amino Transferase 11 U/L (0-37); Blood Urea Nitrogen 33 MG/DL (7-18); Calcium 7.5 MG/DL (8.5-10.1); Carbon Dioxide 20 MMOL/L (21-32); Estimated Glom Filtration Rate 36 ML/MIN; Glucose 217 MG/DL (74-106); Osmolality,Calculated 286.8 MOS/KG (273-304); Potassium 4.5 MMOL/L (3.5-5.1); Sodium 137 MMOL/L (136-145); Total Protein 4.5 G/DL (6.4-8.2)
[2020-06-27] MEDS: ALBUTEROL/IPRATROPIUM 3 ML NEB RESP TX SCH ×2 (07:10→19:38)
[2020-06-27 07:52] LABS: Burr Cells 1+; Poikilocytosis 2+
[2020-06-27 07:53] LABS: Hypochromasia Slight; Platelet Estimate Normal
[2020-06-27] MEDS: POLYETHYLENE GLYCOL POWDER 17 GM PACK PO SCH (09:06)
[2020-06-27] MEDS: ENOXAPARIN 40 MG/0.4 ML SYRINGE SUBCUT SCH (09:06)
[2020-06-27] MEDS: ZINC OXIDE PASTE 113 GM TUBE TOP SCH ×2 (09:07→20:24)
[2020-06-27] MEDS: ASPIRIN EC 81 MG TABLET PO SCH (09:07)
[2020-06-27] MEDS: carvediloL 3.125 MG TABLET PO SCH ×2 (09:07→20:24)
[2020-06-27] MEDS: PANTOPRAZOLE 40 MG TABLET PO SCH (09:07)
[2020-06-27 12:27] LABS: Bacteria,Urine Occasional /HPF (Few); Bilirubin,Urine Negative (Negative); Blood, Urine Negative (Negative); Glucose,Urine (UA) Negative (Negative); Hyaline Casts,Urine 18 /LPF (0-3); Ketones,Urine 5 mg/dL (Negative); Mucus,Urine Few /LPF (Occasional); Nitrite,Urine Negative (Negative); Protein,Urine Negative; RBC,Urine 2 /HPF (0-4); Squamous Epithelial Cell,Urine Occasional /HPF (0-10); Urine Appearance CLEAR (Clear); Urine Color Yellow (Yellow); Urine Urobilinogen < 2.0 EU/DL (0.2-1.0); WBC,Urine 1 /HPF (0-6)
[2020-06-27] MEDS: QUEtiapine 25 MG TABLET PO SCH (20:23)
[2020-06-27] MEDS: GABAPENTIN 400 MG CAPSULE PO SCH (20:24)
[2020-06-28] MEDS: DEXT 5% NACL 0.45% KCL 20 MEQ 20 MEQ/1,000 ML BAG IV SCH ×3 (04:45→10:50)
[2020-06-28] MEDS: metroNIDAZOLE INJ 500 MG in PREMIX 1 EACH IV SCH ×3 (04:59→16:17)
[2020-06-28 05:47] LABS: Basophils % 0.2 % (0.0-0.8); Eosinophils # 0.4 10*3/uL (0.0-0.87); Eosinophils % 2.4 % (0.00-10.9); Hemoglobin 8.3 GM/DL (14.0-18.0); Immature Granulocytes % 0.4 %; Immature Granulocytes Absolute 0.07 #; Lymphocytes # 0.7 10*3/uL (1.4-4.0); Lymphocytes % 4.1 % (21.2-54.2); Mean Corpuscular HGB Conc 33.2 GM/DL (32-36); Mean Corpuscular Volume 92.9 FL (87-102); Mean Platelet Volume 9.3 FL (9.6-12.0); Monocytes % 5.9 % (1.7-12.7); Platelet Count 303 T/CUMM (130-400); Red Blood Count 2.69 MC/CUMM (3.8-5.5); Red Cell Distribution Width 13.8 % (9.3-17.3); White Blood Count 17.2 T/CUMM (4-12)
[2020-06-28 06:10] LABS: Calcium 7.8 MG/DL (8.5-10.1); Osmolality,Calculated 282.5 MOS/KG (273-304); Potassium 4.5 MMOL/L (3.5-5.1)
[2020-06-28] MEDS: ALBUTEROL/IPRATROPIUM 3 ML NEB RESP TX SCH ×2 (06:55→19:45)
[2020-06-28 08:50] LABS: Band Neutrophils 2 % (0-10); Eosinophils 3 % (0-10); Hypersegmented Neutrophil 2+; Lymphocytes 6 % (20-55); Platelet Estimate Normal; Segmented Neutrophils 82 % (50-85); Total Cells Counted 100
[2020-06-28] MEDS: ZINC OXIDE PASTE 113 GM TUBE TOP SCH ×2 (09:17→20:06)
[2020-06-28] MEDS: ASPIRIN EC 81 MG TABLET PO SCH (09:18)
[2020-06-28] MEDS: PANTOPRAZOLE 40 MG TABLET PO SCH (09:18)
[2020-06-28] MEDS: ENOXAPARIN 40 MG/0.4 ML SYRINGE SUBCUT SCH (09:18)
[2020-06-28] MEDS: POLYETHYLENE GLYCOL POWDER 17 GM PACK PO SCH (09:18)
[2020-06-28] MEDS: carvediloL 3.125 MG TABLET PO SCH ×2 (10:46→20:04)
[2020-06-28] MEDS: GABAPENTIN 400 MG CAPSULE PO SCH (20:04)
[2020-06-28] MEDS: QUEtiapine 25 MG TABLET PO SCH (20:04)
[2020-06-29] MEDS: metroNIDAZOLE INJ 500 MG in PREMIX 1 EACH IV SCH ×3 (00:02→11:47)
[2020-06-29] MEDS: DEXT 5% NACL 0.45% KCL 20 MEQ 20 MEQ/1,000 ML BAG IV SCH ×4 (00:02→16:47)
[2020-06-29] MEDS: ALBUTEROL/IPRATROPIUM 3 ML NEB RESP TX SCH ×2 (07:20→19:10)
[2020-06-29] MEDS: ENOXAPARIN 40 MG/0.4 ML SYRINGE SUBCUT SCH (09:29)
[2020-06-29] MEDS: PANTOPRAZOLE 40 MG TABLET PO SCH (09:29)
[2020-06-29] MEDS: carvediloL 3.125 MG TABLET PO SCH ×2 (09:30→21:29)
[2020-06-29] MEDS: ASPIRIN EC 81 MG TABLET PO SCH (09:30)
[2020-06-29] MEDS: ZINC OXIDE PASTE 113 GM TUBE TOP SCH (09:30)
[2020-06-29] MEDS: POLYETHYLENE GLYCOL POWDER 17 GM PACK PO SCH (09:30)
[2020-06-29 12:37] LABS: Basophils % 0.1 % (0.0-0.8); Eosinophils # 0.2 10*3/uL (0.0-0.87); Eosinophils % 0.7 % (0.00-10.9); Hematocrit 23.6 VOL% (42.0-52.0); Hemoglobin 7.6 GM/DL (14.0-18.0); Immature Granulocytes % 0.8 %; Immature Granulocytes Absolute 0.18 #; Lymphocytes # 0.7 10*3/uL (1.4-4.0); Mean Corpuscular HGB Conc 32.2 GM/DL (32-36); Mean Corpuscular Volume 92.5 FL (87-102); Mean Platelet Volume 9.1 FL (9.6-12.0); Monocytes % 7.4 % (1.7-12.7); Platelet Count 255 T/CUMM (130-400); Red Blood Count 2.55 MC/CUMM (3.8-5.5); Red Cell Distribution Width 13.8 % (9.3-17.3); White Blood Count 21.5 T/CUMM (4-12)
[2020-06-29 12:57] LABS: Eosinophils 1 % (0-10); Lymphocytes 2 % (20-55); Segmented Neutrophils 92 % (50-85); Total Cells Counted 100
[2020-06-29 12:59] LABS: Anisocytosis Slight; Burr Cells Few; Poikilocytosis Few
[2020-06-29 13:00] LABS: Ovalocytes Few
[2020-06-29 13:01] LABS: Platelet Estimate Adequate
[2020-06-29 15:37] LABS: Calcium 7.7 MG/DL (8.5-10.1); Osmolality,Calculated 277.8 MOS/KG (273-304); Potassium 5.1 MMOL/L (3.5-5.1)
[2020-06-29] MEDS ORDERED: MAGNESIUM SULF RIDER 4 GM/100 ML PREMIX IV PRN (16:14)
[2020-06-29] MEDS ORDERED: MAGNESIUM SULF RIDER 2 GM/50 ML PREMIX IV PRN (16:14)
[2020-06-29] MEDS: MENTHOL/ZINC OXIDE OINT 71 GM JAR TOP SCH ×2 (16:40→21:29)
[2020-06-29] MEDS: FAT EMULSION 20% 250 ML IV SCH (16:45)
[2020-06-29] MEDS ORDERED: MANGANESE IV SCH (17:00)
[2020-06-29] MEDS ORDERED: COPPER IV SCH (17:00)
[2020-06-29] MEDS ORDERED: AMINO ACIDS IV SCH (17:00)
[2020-06-29] MEDS ORDERED: MULTIVITAMIN IV SCH (17:00)
[2020-06-29] MEDS ORDERED: [UNRECOGNIZED DRUG - OTHER] IV SCH (17:00)
[2020-06-29] MEDS ORDERED: SELENIUM IV SCH (17:00)
[2020-06-29] MEDS ORDERED: ZINC IV SCH (17:00)
[2020-06-29] MEDS: QUEtiapine 25 MG TABLET PO SCH (21:29)
[2020-06-29] MEDS: GABAPENTIN 400 MG CAPSULE PO SCH (21:29)
[2020-06-30] MEDS: DEXT 5% NACL 0.45% KCL 20 MEQ 20 MEQ/1,000 ML BAG IV SCH ×2 (02:03→16:12)
[2020-06-30 07:16] LABS: Basophils % 0.1 % (0.0-0.8); Eosinophils # 0.3 10*3/uL (0.0-0.87); Eosinophils % 1.7 % (0.00-10.9); Hematocrit 20.9 VOL% (42.0-52.0); Immature Granulocytes % 0.8 %; Immature Granulocytes Absolute 0.14 #; Lymphocytes # 0.5 10*3/uL (1.4-4.0); Lymphocytes % 3.2 % (21.2-54.2); Mean Corpuscular HGB Conc 29.2 GM/DL (32-36); Mean Corpuscular Volume 102.5 FL (87-102); Mean Platelet Volume 9.9 FL (9.6-12.0); Monocytes % 8.6 % (1.7-12.7); Neutrophils % 85.6 % (38.7-73.9); Platelet Count 169 T/CUMM (130-400); Red Blood Count 2.04 MC/CUMM (3.8-5.5); Red Cell Distribution Width 14.8 % (9.3-17.3); White Blood Count 16.8 T/CUMM (4-12)
[2020-06-30 07:17] LABS: Hemoglobin 6.1 GM/DL (14.0-18.0)
[2020-06-30] MEDS: ALBUTEROL/IPRATROPIUM 3 ML NEB RESP TX SCH ×2 (07:22→19:59)
[2020-06-30] MEDS ORDERED: SODIUM CHLORIDE 0.9% 1,000 ML IV PRN (07:25)
[2020-06-30 07:36] LABS: Band Neutrophils 2 % (0-10); Eosinophils 2 % (0-10); Hypochromasia 1+; Lymphocytes 2 % (20-55); Microcytosis 1+; Ovalocytes Slight; Segmented Neutrophils 89 % (50-85); Total Cells Counted 100
[2020-06-30 07:37] LABS: Platelet Estimate Adequate
[2020-06-30 08:53] LABS: Calcium 7.5 MG/DL (8.5-10.1); Osmolality,Calculated 278.1 MOS/KG (273-304); Potassium 4.1 MMOL/L (3.5-5.1)
[2020-06-30] MEDS: PANTOPRAZOLE 40 MG TABLET PO SCH (09:59)
[2020-06-30] MEDS: POLYETHYLENE GLYCOL POWDER 17 GM PACK PO SCH (09:59)
[2020-06-30] MEDS: carvediloL 3.125 MG TABLET PO SCH ×2 (09:59→21:08)
[2020-06-30] MEDS: ENOXAPARIN 40 MG/0.4 ML SYRINGE SUBCUT SCH (09:59)
[2020-06-30] MEDS: ASPIRIN EC 81 MG TABLET PO SCH (10:00)
[2020-06-30] MEDS: MENTHOL/ZINC OXIDE OINT 71 GM JAR TOP SCH ×2 (10:05→22:25)
[2020-06-30] MEDS ORDERED: FUROSEMIDE 40 MG/4 ML VIAL IV ONE ×2 (13:15→14:30)
[2020-06-30] MEDS ORDERED: FUROSEMIDE 40 MG/4 ML VIAL ONE (13:23)
[2020-06-30] MEDS: FAT EMULSION 20% 250 ML IV SCH (15:13)
[2020-06-30] MEDS ORDERED: SODIUM CHLORIDE 0.9% IV ONE (16:00)
[2020-06-30] MEDS ORDERED: SODIUM PHOSPHATE IV ONE (16:00)
[2020-06-30] MEDS: SELENIUM IV SCH (16:36)
[2020-06-30] MEDS: ZINC IV SCH (16:36)
[2020-06-30] MEDS: [UNRECOGNIZED DRUG - OTHER] IV SCH (16:36)
[2020-06-30] MEDS: MANGANESE IV SCH (16:36)
[2020-06-30] MEDS: MULTIVITAMIN IV SCH (16:36)
[2020-06-30] MEDS: COPPER IV SCH (16:36)
[2020-06-30] MEDS: AMINO ACIDS IV SCH (16:36)
[2020-06-30] MEDS: GABAPENTIN 400 MG CAPSULE PO SCH (21:08)
[2020-06-30] MEDS: QUEtiapine 25 MG TABLET PO SCH (21:08)
[2020-07-01 06:39] LABS: Basophils % 0.1 % (0.0-0.8); Eosinophils # 0.3 10*3/uL (0.0-0.87); Eosinophils % 1.8 % (0.00-10.9); Hematocrit 28.7 VOL% (42.0-52.0); Hemoglobin 9.5 GM/DL (14.0-18.0); Immature Granulocytes % 1.3 %; Immature Granulocytes Absolute 0.22 #; Lymphocytes # 0.7 10*3/uL (1.4-4.0); Lymphocytes % 4.3 % (21.2-54.2); Mean Corpuscular HGB Conc 33.1 GM/DL (32-36); Mean Corpuscular Volume 88.9 FL (87-102); Mean Platelet Volume 10.2 FL (9.6-12.0); Monocytes % 11.9 % (1.7-12.7); Neutrophils % 80.6 % (38.7-73.9); Platelet Count 166 T/CUMM (130-400); Red Blood Count 3.23 MC/CUMM (3.8-5.5); Red Cell Distribution Width 15.6 % (9.3-17.3); White Blood Count 17.1 T/CUMM (4-12)
[2020-07-01 06:55] LABS: Albumin 1.1 G/DL (3.4-5.0); Calcium 7.2 MG/DL (8.5-10.1); Osmolality,Calculated 276.2 MOS/KG (273-304); Potassium 3.1 MMOL/L (3.5-5.1); Prealbumin 3.4 MG/DL (20-40)
[2020-07-01 07:01] LABS: Eosinophils 4 % (0-10); Hypochromasia 1+; Lymphocytes 9 % (20-55); Microcytosis 1+; Platelet Estimate Adequate; Segmented Neutrophils 77 % (50-85); Total Cells Counted 100
[2020-07-01] MEDS: DEXT 5% NACL 0.45% KCL 20 MEQ 20 MEQ/1,000 ML BAG IV SCH ×2 (07:03→11:44)
[2020-07-01] MEDS: ALBUTEROL/IPRATROPIUM 3 ML NEB RESP TX SCH ×2 (07:10→19:21)
[2020-07-01] MEDS ORDERED: POTASSIUM PHOSPHATE 30 MMOL in SODIUM CHLORIDE 0.9% 250 ML IV ONE (08:30)
[2020-07-01] MEDS ORDERED: MAGNESIUM SULF RIDER 2 GM/50 ML PREMIX IV ONE (09:30)
[2020-07-01] MEDS: ENOXAPARIN 40 MG/0.4 ML SYRINGE SUBCUT SCH (10:06)
[2020-07-01] MEDS: ASPIRIN EC 81 MG TABLET PO SCH (10:08)
[2020-07-01] MEDS: PANTOPRAZOLE 40 MG TABLET PO SCH (10:08)
[2020-07-01] MEDS: carvediloL 3.125 MG TABLET PO SCH ×2 (10:08→20:44)
[2020-07-01] MEDS: MENTHOL/ZINC OXIDE OINT 71 GM JAR TOP SCH ×2 (10:09→20:45)
[2020-07-01] MEDS: POLYETHYLENE GLYCOL POWDER 17 GM PACK PO SCH (10:13)
[2020-07-01 13:15] LABS: INR 1.2; PT Patient Result 13.7 SECS (9.8-11.9)
[2020-07-01] MEDS: MULTIVITAMIN IV SCH (15:03)
[2020-07-01] MEDS: [UNRECOGNIZED DRUG - OTHER] IV SCH (15:03)
[2020-07-01] MEDS: ZINC IV SCH (15:03)
[2020-07-01] MEDS: COPPER IV SCH (15:03)
[2020-07-01] MEDS: SELENIUM IV SCH (15:03)
[2020-07-01] MEDS: MANGANESE IV SCH (15:03)
[2020-07-01] MEDS: AMINO ACIDS IV SCH (15:03)
[2020-07-01] MEDS: FAT EMULSION 20% 250 ML IV SCH (15:03)
[2020-07-01 17:25] LABS: Glucose,Peritoneal Fluid 84 MG/DL; Total Protein,Peritoneal Fluid 2.3 G/DL
[2020-07-01 20:28] LABS: Neutrophils,Peritoneal Fluid 55 %
[2020-07-01 20:33] LABS: RBC,Peritoneal Fluid 2194 T/CUMM
[2020-07-01] MEDS: QUEtiapine 25 MG TABLET PO SCH (20:44)
[2020-07-01] MEDS: GABAPENTIN 400 MG CAPSULE PO SCH (20:44)
[2020-07-02] MEDS: DEXT 5% NACL 0.45% KCL 20 MEQ 20 MEQ/1,000 ML BAG IV SCH (05:00)
[2020-07-02 06:34] LABS: Basophils % 0.2 % (0.0-0.8); Eosinophils # 0.6 10*3/uL (0.0-0.87); Eosinophils % 3.9 % (0.00-10.9); Hematocrit 26.4 VOL% (42.0-52.0); Hemoglobin 8.9 GM/DL (14.0-18.0); Immature Granulocytes % 1.6 %; Immature Granulocytes Absolute 0.22 #; Lymphocytes # 0.8 10*3/uL (1.4-4.0); Lymphocytes % 5.4 % (21.2-54.2); Mean Corpuscular HGB Conc 33.7 GM/DL (32-36); Mean Platelet Volume 10.4 FL (9.6-12.0); Monocytes % 14.3 % (1.7-12.7); Neutrophils % 74.6 % (38.7-73.9); Platelet Count 168 T/CUMM (130-400); Red Cell Distribution Width 15.4 % (9.3-17.3); White Blood Count 14.2 T/CUMM (4-12)
[2020-07-02 06:54] LABS: Calcium 6.9 MG/DL (8.5-10.1); Osmolality,Calculated 277.1 MOS/KG (273-304); Potassium 3.1 MMOL/L (3.5-5.1)
[2020-07-02] MEDS: ALBUTEROL/IPRATROPIUM 3 ML NEB RESP TX SCH (07:18)
[2020-07-02] MEDS: MENTHOL/ZINC OXIDE OINT 71 GM JAR TOP SCH (09:16)
[2020-07-02] MEDS: ENOXAPARIN 40 MG/0.4 ML SYRINGE SUBCUT SCH (09:16)
[2020-07-02] MEDS: POLYETHYLENE GLYCOL POWDER 17 GM PACK PO SCH (09:16)
[2020-07-02] MEDS: carvediloL 3.125 MG TABLET PO SCH (09:17)
[2020-07-02] MEDS: PANTOPRAZOLE 40 MG TABLET PO SCH (09:17)
[2020-07-02] MEDS: ASPIRIN EC 81 MG TABLET PO SCH (09:17)
[2020-07-02 11:52] VITALS: BP 110/46
[2020-07-02] MEDS: ACETAMINOPHEN 325 MG TABLET PO PRN (12:33)
== END 2020-07-02 14:35 | DRG 329 ==
LOC: EDBD → EDUNIT# → N.ED 22:03 → N.EDINP 23:23 → N.3E 06-12 01:40
PROVIDERS: ADMIT Surgery; ATTEND Surgery